=== PATIENT | female | born 1945 | race Caucasian/White ===

== ENCOUNTER 2024-01-21 13:48 | Emergency (ER) | payer MEDICARE, SELFPAY ==
[2024-01-21] VITALS (10 sets, daily range): BP systolic 108–175; BP diastolic 49–83; PULSE 61–69; BMI 23.0
[2024-01-21 14:30] LABS: % Basophils 0.8 % (0-2); % Eosinophils 1.8 % (0-6); % Immature Granulocytes 0.3 % (0-0.5); % Lymphocytes 12.8 % (20.5-51.1); % Monocytes 4.9 % (1.7-9.3); % Neutrophils 79.4 % (42.2-75.2); Absolute Basophils 0.1 10^3/uL (0-0.2); Absolute Eosinophils 0.2 10^3/uL (0-0.7); Absolute Lymphocytes 1.1 10^3/uL (1.2-3.4); Absolute Monocytes 0.4 10^3/uL (0.1-0.6); Absolute Neutrophils 7.1 10^3/uL (1.4-6.5); Hematocrit 42.5 % (37.0-47.0); Mean Corp Hgb Conc. 32.9 g/dL (33.0-37.0); Mean Corpuscular Hgb 30.9 pg (27.0-31.0); Mean Corpuscular Volume 93.8 fL (81.0-99.0); Mean Platelet Volume 9.3 fL (7.4-10.4); Nucleated Red Blood Cells % 0 %; Platelet Count 308 10^3/uL (130-400); Red Blood Cell Count 4.53 10^6/uL (4.20-5.40); Red Cell Dist. Width 14.4 % (11.5-14.5); White Blood Cell Count 8.9 10^3/uL (4.8-10.8)
[2024-01-21 14:49] LABS: ALT (SGPT) 70 U/L (0-35); AST (SGOT) 57 U/L (14-36); Albumin 3.9 g/dl (3.5-5.0); Alkaline Phosphatase 144 U/L (38-126); Blood Urea Nitrogen 12 mg/dl (7-17); Calcium 9.3 mg/dl (8.4-10.2); Carbon Dioxide 32 mmol/L (22-30); Chloride 94 mmol/L (98-107); Estimated Creatinine Clearance 53 ml/min; Glucose 139 mg/dl (70-99); Potassium 3.7 mmol/L (3.5-5.1); Sodium 133 mmol/L (135-145); Total Bilirubin 0.7 mg/dl (0.2-1.3); Total Protein 7.1 g/dl (6.3-8.2); eGFR > 60.00
--- NOTE | 2024-01-21 15:49 | ED.GENMED ---
History of Present Illness
General
Chief Complaint: Fainting/Passed Out
Source: patient
Exam Limitations: none
Time Seen by Provider: 01/21/24 15:24
Nursing documentation reviewed up to this point in time: agreed with
Travel History
Have you had any contact with someone who has COVID-19?: No
Do you have any symptoms of coronavirus? Fever > 100 degrees, chills, cough, shortness of breath, sore throat, loss of taste or smell, muscle aches, or headache?: No
History of Present Illness
History of Present Illness:
Patient to ED s/p syncopal event. According to family she was taking a hot shower. When she got out she felt weak and shaky. tried to walk her to a chair and she fell back into his arms. Daughter helped place her in a chair and she
passed out for approx 60 seconds. Has had near syncopal episodes in the past. Daughter states she has a history of vertigo and is never sure if she is dizzy of close to fainting. Pateint states she has had an upset stomach for the past couple
days. No abdominal pain or diarrhea. No fever/chills. Family reports she typically has a poor appitite and state she has very little to eat or drink over the past 24 hours. Brought to ED via EMS for eval.
Past History
Past History
ED Past Medical History: CAD, COPD, GERD, HTN, Hypercholesterolemia, NIDDM and Other (Ischemic cardiomyopathy with EF of 20-25%, interstitial lung disease, asthma)
ED Past Surgical History: Appendectomy and Cholecystectomy
Social History
Tobacco: Former smoker (quit )
Alcohol: None
Drug: None
Personal:
Living: senior living
Employment: Retired
Family History
Family History: Other (Grandmother with coronary disease father with cancer)
Review of Systems
Review of Systems
Allergies reviewed?: Yes
All Other Systems: ROS reviewed and negative except as documented in HPI and ROS
Constitutional: Reports fatigue
EENT: Reports no symptoms
Respiratory: Reports no symptoms
Cardiac: Reports syncope
ABD/GI: Reports other (poor appetite (typical). 'Upset stomach' (new))
: Reports no symptoms
Musculoskeletal: Reports no symptoms
Skin: Reports no symptoms
Neurological: Reports weakness
Psychiatric: Reports no symptoms
Phy Exam
General Physical Exam
General Presentation: well appearing and no apparent distress
General age: appears stated age
General Skin: warm and dry
General Habitus: elderly
General Mental: alert
Cardiovascular Exam
Cardiovascular Exam: regular rate/rhythm and no edema
Pulmonary Exam
Pulmonary Exam: no respiratory distress
Breath Sounds: Crackles: generalized
Gastrointestinal Exam
Gastrointestinal Exam: normal bowel sounds, non tender, soft, no organomegaly, no pulsatile mass, non distended and no cva tenderness
Neurological Exam
Neurological Exam: alert, oriented x3, CN II-XII intact, no motor deficits, no sensory deficits and speech normal
Musculoskeletal Exam
Musculoskeletal Exam: full ROM, no edema and neuro vasc intact
Skin Exam
Skin Exam: normal color, warm/dry and no rash
Psychiatric Exam
Psychiatric Exam: normal mood/affect
Course
Orders/Labs/Results
Orders:
Orders
01/21/24 13:52
Electrocardiogram (*1) Urgent
Reason for Study: Syncope
EKG- Treatment ONCE
01/21/24 14:00
Complete Blood Count/With Diff Urgent
Comprehensive Metabolic Panel Urgent
01/21/24 15:48
Cardiac Monitoring- Treatment ONCE
Orthostatic VS- Treatment ONCE
CR Chest - 2 Views Urgent
Comment:
Reason For Exam: syncope
01/21/24 16:09
Troponin I Urgent
01/21/24 18:38
Urinalysis Reflex To Culture Urgent
Date Specimen was Collected: 01/21/24
Time Specimen was Collected: 17:20
Urine Microscopic Reflex Cult Urgent
Abnormal Lab Results
01/21/24 01/21/24
14:00 18:38
MCHC 32.9 L g/dL
(33.0-37.0)
Absolute Neuts (auto) 7.1 H 10^3/uL
(1.4-6.5)
Absolute Lymphs (auto) 1.1 L 10^3/uL
(1.2-3.4)
Neutrophils % 79.4 H %
(42.2-75.2)
Lymphocytes % 12.8 L %
(20.5-51.1)
Sodium 133 L mmol/L
(135-145)
Chloride 94 L mmol/L
(98-107)
Carbon Dioxide 32 H mmol/L
(22-30)
Glucose 139 H mg/dl
(70-99)
AST 57 H U/L
(14-36)
ALT 70 H U/L
(0-35)
Alkaline Phosphatase 144 H U/L
(38-126)
Urine Bilirubin 1+ A
(Negative)
Leukocyte Esterase Rfl Trace A
(Negative)
Urine Bacteria (Reflex) Few A
(Negative)
01/21/24 14:00
01/21/24 14:00
Vital Signs
Initial and Last Documented VS:
Initial Vital Signs
BP
117/62
01/21/24 13:51
Last Documented Vital Signs
Temp Pulse Resp BP Pulse Ox
97.8 F 57 14 175/83 97
01/21/24 13:52 01/21/24 18:45 01/21/24 18:45 01/21/24 18:37 01/21/24 18:45
*Radiology
Radiology exam reviewed: radiology read reviewed
*Pulse Oximetry
Patient hypoxic: no
*Critical Care Note
Total Time (30-74mins, 75-104mins- exclusive of procedures): Not Applicable
Update Note
Update Note:
Labs, CXR resutls reviewed with patient and family. No symptoms while in ED. No concerning findings on exam SHe is discharged home nd will follow up with PCP. Given instrutions on s/s to return to ED. Case discussed with Dr. Ling who agrees
with findings and plan.
ED Attending Note
-
Portions of this chart may have been created with voice recognition software.� Occasional wrong word or��sound alike� substitutions may have occurred due to the inherent limitations of voice recognition software.
Discharge Plan
Departure
Patient Disposition: Home (Routine Discharge)
Date of Disposition: 01/21/24
Time of Disposition: 18:54
Patient with high blood pressure during this ER visit?: No
Condition: Good
Covid-19: Not Applicable
Discharge Problem:
Syncope
Instructions: Syncope (Fainting) (DC)
Prescriptions:
No Action
metformin 500 MG tablet
500 mg PO BID@0800,1700
atorvastatin 80 MG tablet
80 mg PO QPM
cyanocobalamin (vitamin B-12) 1,000 MCG tablet
1,000 mcg PO DAILY Qty: 0
albuterol sulfate 1 PUFF HFA aerosol inhaler
2 puff inhalation R Q4HPRN PRN (Reason: sob)
acetaminophen 325 MG tablet
650 mg PO Q4HPRN PRN (Reason: mild pain ) Qty: 0 0RF
ipratropium-albuterol 3 ML solution for nebulization
3 ml inhalation R Q4HPRN PRN (Reason: shortness of breath/wheezing) Qty: 0 0RF
aspirin 81 MG tablet,chewable
81 mg PO DAILY Qty: 0 0RF
cetirizine 10 MG tablet
10 mg PO DAILY
losartan 25 MG tablet
25 mg PO DAILY
montelukast 10 MG tablet
10 mg PO HS
guaifenesin [Mucus Relief ER] 600 MG tablet extended release 12hr
600 mg PO Q12 PRN (Reason: congestion)
escitalopram oxalate 20 MG tablet
20 mg PO DAILY
donepezil 5 mg tablet
5 mg PO QPM
levothyroxine 25 mcg tablet
25 mcg PO DAILY
gabapentin 300 mg capsule
300 mg PO TID
bupropion HCl 300 mg tablet extended release 24 hr
300 mg PO DAILY
risedronate 150 mg tablet
150 mg PO MONTHLY
fluticasone furoate-vilanterol [Breo Ellipta] 100-25 mcg/dose blister with device
1 inh INHALATION R DAILY
calcium carbonate-vitamin D3 [Calcium 600 + D(3)] 600 mg-10 mcg (400 unit) Tablet
1 tab PO DAILY
meclizine 25 mg tablet
12.5 mg PO TID PRN (Reason: dizziness)
multivitamin Tablet
1 tab PO DAILY
famotidine 40 mg Tablet
40 mg PO HS
omeprazole 20 mg Capsule,Delayed Release(Dr/Ec)
40 mg PO DAILY
Referrals:
Margie Burkett MD [Family Provider] - Tomorrow
Interventions
Interventions:
*Risk Screen - Suicide Last Done: 01/21/24 13:52
*General Assessment Last Done: 01/21/24 13:52
*Neglect/Abuse Screening Last Done: 01/21/24 13:52
ED- Fall Risk Assessment Last Done: 01/21/24 19:22
*Nursing Disposition Last Done: 01/21/24 19:22
ED- Cardiac Assessment Last Done: 01/21/24 13:58
ED- Neurological Assessment Last Done: 01/21/24 13:58
Discharge Date and Time
Discharge Date/Time: 01/21/24 19:23
Print Language: NAURUAN
[2024-01-21 16:58] LABS: Troponin I < 0.012 ng/ml
[2024-01-21 18:42] LABS: Urine Albumin Trace (Neg - Trace); Urine Bilirubin 1+ (Negative); Urine Character Clear (Clear); Urine Color Yellow; Urine Glucose Negative (Negative); Urine Ketone Negative (Negative); Urine Leukocyte Trace (Negative); Urine Nitrite Negative (Negative); Urine Occult Blood Negative (Negative); Urine Specific Gravity 1.015 (<1.030); Urine Urobilinogen Negative (Neg - 1+)
[2024-01-21 18:50] LABS: Urine Bacteria Few (Negative); Urine Red Blood Cell 0-2 /HPF (0-2); Urine Squamous Cell 0-2 /LPF (Few); Urine White Cell 0-2 /HPF (0-5)
== END 2024-01-21 19:23 | disposition home or self-care (01) ==
LOC: EMR 13:48
PROVIDERS: Nurse Practitioner; EMERGENCY PHYSICIAN Emergency Medicine; FAMILY PHYSICIAN Family Medicine
DX: R55 Syncope and collapse (principal); I25.10 Atherosclerotic heart disease of native coronary artery without angina pectoris; J44.9 Chronic obstructive pulmonary disease, unspecified; K21.9 Gastro-esophageal reflux disease without esophagitis; I10 Essential (primary) hypertension; E78.00 Pure hypercholesterolemia, unspecified; E11.9 Type 2 diabetes mellitus without complications; I25.5 Ischemic cardiomyopathy; Z87.891 Personal history of nicotine dependence; Z82.49 Family history of ischemic heart disease and other diseases of the circulatory system; Z80.9 Family history of malignant neoplasm, unspecified
CPT/HCPCS: 99283; 71046; 80053; 81003; 81015; 84484; 85025; 93005

== ENCOUNTER 2024-02-02 16:53 | Inpatient (IN) | payer MEDICARE, SELFPAY ==
[2024-02-02] VITALS (13 sets, daily range): BP systolic 127–170; BP diastolic 59–87; BMI 20.9
[2024-02-02 11:32] LABS: % Basophils 0.3 % (0-2); % Eosinophils 0.1 % (0-6); % Immature Granulocytes 0.3 % (0-0.5); % Lymphocytes 4.5 % (20.5-51.1); % Monocytes 4.4 % (1.7-9.3); % Neutrophils 90.4 % (42.2-75.2); Absolute Basophils 0.1 10^3/uL (0-0.2); Absolute Immature Granulocytes 0.1 10^3/uL (0-0.05); Absolute Lymphocytes 0.7 10^3/uL (1.2-3.4); Absolute Monocytes 0.7 10^3/uL (0.1-0.6); Absolute Neutrophils 13.6 10^3/uL (1.4-6.5); Hemoglobin 13.5 g/dL (12.0-16.0); Mean Corp Hgb Conc. 33.8 g/dL (33.0-37.0); Mean Corpuscular Hgb 31.5 pg (27.0-31.0); Mean Corpuscular Volume 93.5 fL (81.0-99.0); Mean Platelet Volume 8.9 fL (7.4-10.4); Nucleated Red Blood Cells % 0 %; Platelet Count 323 10^3/uL (130-400); Red Blood Cell Count 4.28 10^6/uL (4.20-5.40); Red Cell Dist. Width 14.4 % (11.5-14.5); White Blood Cell Count 15.1 10^3/uL (4.8-10.8)
[2024-02-02 11:48] LABS: ALT (SGPT) 25 U/L (0-35); AST (SGOT) 24 U/L (14-36); Albumin 3.3 g/dl (3.5-5.0); Alkaline Phosphatase 81 U/L (38-126); Blood Urea Nitrogen 11 mg/dl (7-17); Carbon Dioxide 28 mmol/L (22-30); Chloride 99 mmol/L (98-107); Estimated Creatinine Clearance 64 ml/min; Glucose 125 mg/dl (70-99); Potassium 3.6 mmol/L (3.5-5.1); Sodium 132 mmol/L (135-145); Total Bilirubin 0.9 mg/dl (0.2-1.3); Total Protein 6.2 g/dl (6.3-8.2); eGFR > 60.00
[2024-02-02 12:00] LABS: Troponin I < 0.012 ng/ml
--- NOTE | 2024-02-02 12:28 | ED.GENMED ---
History of Present Illness
General
Chief Complaint: Weakness
Source: patient
Exam Limitations: none
Time Seen by Provider: 02/02/24 12:09
Travel History
Have you had any contact with someone who has COVID-19?: No
Do you have any symptoms of coronavirus? Fever > 100 degrees, chills, cough, shortness of breath, sore throat, loss of taste or smell, muscle aches, or headache?: No
History of Present Illness
History of Present Illness:
79 year old female presents with generalized weakness starting several days ago and getting worse. She notes shakes but notes chills or sweats. No measurable fever. She has a history of COPD [id number] diabetes. There is an episode of
vomiting today. She notes extreme weakness not able to walk today. Typically she ambulates on her own with a walker. She presents from home where she lives with her . She has no other significant complaints at this time
Past History
Past History
ED Past Medical History: CAD, COPD, GERD, HTN, Hypercholesterolemia, NIDDM and Other (Ischemic cardiomyopathy with EF of 20-25%, interstitial lung disease, asthma)
ED Past Surgical History: Appendectomy and Cholecystectomy
Social History
Tobacco: Former smoker (quit )
Alcohol: None
Drug: None
Personal:
Living: halfway
Employment: Retired
Family History
Family History: Other (Grandmother with coronary disease father with cancer)
Phy Exam
Physical Exam
Physical Exam:
General: Well-appearing female no acute respiratory distress
HEENT: Normocephalic atraumatic, neck is supple
Heart: Regular rate and rhythm no murmurs
Lungs: Crackles at the base on the left and right course otherwise
Extremities: No cyanosis or edema
Skin: Warm no rash
Course
Orders/Labs/Results
Orders:
Orders
02/02/24 11:18
Electrocardiogram (*1) Urgent
Reason for Study: Fatigue / Weakness
EKG- Treatment ONCE
02/02/24 11:26
Complete Blood Count/With Diff Urgent
Comprehensive Metabolic Panel Urgent
NT-proBNP Urgent
Comment: ADD ON
Troponin I Urgent
02/02/24 12:25
CR Chest - 2 Views Urgent
Comment:
Reason For Exam: weakness, hypoxia
02/02/24 12:26
Add On- LAB Urgent
Tests Added?: bnp
02/02/24 12:31
COVID-19 Antigen Urgent
Source: Nasal Swab
Influenza A+B Rapid Molecular Urgent
LAKESHA Source: Nasal Swab
Specimen Description:
02/02/24 14:12
Dexamethasone Sod Phosphate [Decadron] 10 mg IV NOW STA
Ipratropium/Albuterol Sulfate [Duoneb] 3 ml INH R NOW STA
02/02/24 Dinner
Regular
At Your Request: Limited, Property Supervisor Required
02/02/24 16:24
Admit/Transfer Patient As Directed
Co-Sign Provider:
Level of Care: Inpatient admission
Assign to:: Medical/Surgical
Physician / Group: bailey
Diagnosis: uti/URI, copd
Reason for Hospitalization: uti/URI, copd
Expected length of stay greater than two midnights?: Yes
ELOS- Estimated Length of Stay in days: 2
I certify the patient meets the requirements for IP care: Yes
02/02/24 16:25
Code Status As Directed
Resuscitation Status: Full Code
02/02/24 16:26
Urinalysis Reflex To Culture Urgent
Date Specimen was Collected: 02/03/24
Time Specimen was Collected: 06:14
02/02/24 20:29
0.9% Sodium Chloride 1000 ml [Nss] 1,000 ml IV 70 mls/hr
Acetaminophen [Tylenol] 650 mg PO Q4HPRN PRN
Atorvastatin [Lipitor] 80 mg PO QPM
Dextrose 50%-Water [Dextrose 50% Syringe] 12.5 grams IV [id number] PRN
Glucagon [GlucaGen] 1 mg IM PRN PRN
Guaifenesin [Mucinex] 600 mg PO [id number] PRN
Heparin 5,000 units SC Q12
Insulin Aspart Corrective Low [Novolog Flexpen-Low Resistance] See Protocol SC AC
Ipratropium/Albuterol Sulfate [Duoneb] 3 ml INH R Q4HPRN PRN
Ipratropium/Albuterol Sulfate [Duoneb] 3 ml INH R QID
METFORMIN HCl [Glucophage] 500 mg PO BID@0800,1700
02/02/24 20:29
Activity As Directed
Activity Level: As Tolerated
Bedside Glucose Monitoring As Directed
Frequency: AC&HS
Comment: Change to q6h if pt on TPN, tube feeding or not eating
Intake/ Output As Directed
Frequency: Per unit guidelines
Vital Signs As Directed
Frequency: Per unit guidelines
Copd Education [RESP] Routine
DX Deep Vein Thrombosis Video Routine
02/02/24 20:53
Meclizine [Antivert] 12.5 mg PO TIDPRN PRN
02/02/24 21:00
Donepezil HCl [Aricept] 10 mg PO QPM
02/02/24 22:00
Famotidine [Pepcid] 40 mg PO HS
Gabapentin [Neurontin] 300 mg PO TID
Montelukast Sodium [Singulair] 10 mg PO HS
02/03/24 06:00
Levothyroxine [Synthroid] 25 mcg PO DAILY @ 0600
02/03/24 06:24
Basic Metabolic Panel IN AM
Complete Blood Count/With Diff IN AM
Glycohemoglobin (HgbA1c) IN AM
02/03/24 08:00
Aspirin Chewable [Low Strength Aspirin] 81 mg PO DAILY
Bupropion(24Hr)Extended Releas [WELLBUTRIN XL (24 hour extended release)] 300 mg PO DAILY
Calcium Carbonate/Vitamin D3 [Oscal 500 + D] 500 mg PO DAILY
Cetirizine HCl [Zyrtec] 10 mg PO DAILY
Cyanocobalamin [Vitamin B-12] 1,000 mcg PO DAILY
Escitalopram Oxalate [Lexapro] 20 mg PO DAILY
Losartan [Cozaar] 25 mg PO DAILY
Multivitamin [Theragran] 1 tablet PO DAILY
Pantoprazole [Protonix] 40 mg PO DAILY
Prednisone [Deltasone] 40 mg PO DAILY
Abnormal Lab Results
02/02/24
11:26
WBC 15.1 H 10^3/uL
(4.8-10.8)
MCH 31.5 H pg
(27.0-31.0)
Abs Immat Gran (auto) 0.1 H 10^3/uL
(0-0.05)
Absolute Neuts (auto) 13.6 H 10^3/uL
(1.4-6.5)
Absolute Lymphs (auto) 0.7 L 10^3/uL
(1.2-3.4)
Absolute Monos (auto) 0.7 H 10^3/uL
(0.1-0.6)
Neutrophils % 90.4 H %
(42.2-75.2)
Lymphocytes % 4.5 L %
(20.5-51.1)
Sodium 132 L mmol/L
(135-145)
Creatinine 0.5 L mg/dL
(0.6-1.0)
Glucose 125 H mg/dl
(70-99)
Calcium 8.0 L mg/dl
(8.4-10.2)
Total Protein 6.2 L g/dl
(6.3-8.2)
Albumin 3.3 L g/dl
(3.5-5.0)
02/02/24 11:26
02/02/24 11:26
Vital Signs
Initial and Last Documented VS:
Initial Vital Signs
BP
170/67
02/02/24 11:19
Last Documented Vital Signs
Temp Pulse Resp BP Pulse Ox
98.4 F 77 16 160/75 92
02/04/24 07:00 02/04/24 07:26 02/04/24 07:26 02/04/24 07:00 02/04/24 07:26
MDM/Problems Addressed
Differential Diagnosis Includes:
Chief complaint is weakness. Differential is large consider infectious process will check for UTI COVID flu pneumonia. Check for anemia electrolyte abnormality. Patient is hypoxic but does not appear to be volume overloaded. She is requiring now
2 L of oxygen
*Critical Care Note
Total Time (30-74mins, 75-104mins- exclusive of procedures): Not Applicable
Update Note
Update Note:
Chest x-ray reviewed and shows interstitial fibrosis. BNP around 800. White blood cell count 15,000. Patient is requiring 2 L nasal cannula oxygen. No evidence of pneumonia on the x-ray. Consider COPD flare.
ED Attending Note
-
Portions of this chart may have been created with voice recognition software.� Occasional wrong word or��sound alike� substitutions may have occurred due to the inherent limitations of voice recognition software.
Discharge Plan
Departure
Patient Disposition: Admit
Date of Disposition: 02/02/24
Time of Disposition: 15:33
Admit to: Telemetry
Presentation/result/management discussed w/ accepting MD/DO: Hospitalist
Discharge Problem:
Idiopathic pulmonary fibrosis
Interventions
Interventions:
*Risk Screen - Suicide Last Done: 02/02/24 11:21
*General Assessment Last Done: 02/02/24 11:21
*Neglect/Abuse Screening Last Done: 02/02/24 11:21
ED- Fall Risk Assessment Last Done: 02/02/24 20:25
*ED COVID-19 Vaccine History Last Done: 02/02/24 11:21
*Nursing Disposition Last Done: 02/02/24 20:25
ED- Cardiac Assessment Last Done: 02/02/24 11:23
ED- Neurological Assessment Last Done: 02/02/24 11:23
ED- Pulmonary Assessment Last Done: 02/02/24 11:23
Discharge Date and Time
Discharge Date/Time: 02/02/24 20:26
[2024-02-02 12:52] LABS: COVID-19 Antigen Negative (Negative)
[2024-02-02 14:08] LABS: NT-proBNP 880 pg/ml
[2024-02-02] MEDS: DECADRON 10 MG IV (14:40)
[2024-02-02] MEDS: DUONEB 3 ML INH (14:40)
--- NOTE | 2024-02-02 16:29 | HPS.HSE ---
Family Physician
-
Family Physician: Margie Burkett
Chief Complaint
-
weakness
History of Present Illness
79-year-old female past medical history of COPD/ILD, CAD status post stent, diabetes, mild cognitive impairment, essential hypertension, hyperlipidemia, hypothyroidism, anxiety/depression, peripheral neuropathy, GERD, presenting with generalized
weakness for the past few days associated with decreased p.o. intake. She is having difficulty ambulating and unable to walk and almost falling. She had an episode of vomiting this morning. Denies any sore throat or runny nose or chest pain. She
has chronic cough which is at baseline. No shortness of breath. Pulse ox was in the high 90s today. Does not use oxygen at home. No diarrhea or abdominal pain. No urinary symptoms. No sick contacts. No fevers or chills. Denies any recent
steroid use.
Medical History
Past Medical History
Past Medical History: Reports Other (COPD/ILD, CAD status post stent, diabetes, mild cognitive impairment, essential hypertension, hyperlipidemia, hypothyroidism, anxiety/depression, peripheral neuropathy, GERD)
Past Surgical History: Reports Other ( Appendectomy and Cholecystectomy)
Social History
Tobacco: Former Smoker
Alcohol: None
Drug: None
Family History
Family History: Not pertinent
Allergies / Home Medications
Allergies reflects when Allergies were last updated in [facility].
Home Medications with original date entered in [employer]
Allergy/Medication List:
Allergies
Allergy/AdvReac Type Severity Reaction Status Date / Time
Sulfa (Sulfonamide Allergy Hives Verified 11/16/23 13:22
Antibiotics)
lisinopril AdvReac cough Verified 11/16/23 13:22
Home Medications
albuterol sulfate 90 mcg/actuation aerosol inhaler 2 puff inhalation R Q4HPRN PRN sob 08/24/16
atorvastatin 80 mg tablet 80 mg PO QPM High Cholesterol 08/24/16
cyanocobalamin (vitamin B-12) 1,000 mcg tablet 1,000 mcg PO DAILY Supplement ##0 08/24/16
metformin 500 mg tablet 500 mg PO BID@0800,1700 Diabetes 08/24/16
acetaminophen 325 mg tablet 650 mg (2 x 325 mg) PO Q4HPRN PRN mild pain ##0 09/04/16
aspirin 81 mg chewable tablet 81 mg PO DAILY ##0 09/04/16
ipratropium 0.5 mg-albuterol 3 mg (2.5 mg base)/3 mL nebulization soln 3 ml inhalation R Q4HPRN PRN shortness of breath/wheezing ##0 09/04/16
cetirizine 10 mg tablet 10 mg PO DAILY Allergies 05/20/19
escitalopram oxalate 20 mg tablet 20 mg PO DAILY Depression 05/20/19
guaifenesin 600 mg tablet, extended release 12 hr (Mucus Relief ER) 600 mg PO Q12 PRN congestion 05/20/19
losartan 25 mg tablet 25 mg PO DAILY Blood Pressure 05/20/19
montelukast 10 mg tablet 10 mg PO HS ASTHMA 05/20/19
bupropion HCl 300 mg 24 hr tablet, extended release 300 mg PO DAILY Depression 11/16/23
calcium carbonate 600 mg-vitamin D3 10 mcg (400 unit) tablet (Calcium 600 + D(3)) 1 tab PO DAILY Supplement 11/16/23
donepezil 5 mg tablet 10 mg PO QPM MEMORY 11/16/23
famotidine 40 mg tablet 40 mg PO HS Gastrointestinal Issue 11/16/23
fluticasone furoate 100 mcg-vilanterol 25 mcg/dose inhalation powder (Breo Ellipta) 1 inh inhalation R DAILY Lung/Breathing Issues 11/16/23
gabapentin 300 mg capsule 300 mg PO TID Neurological Condition 11/16/23
levothyroxine 25 mcg tablet 25 mcg PO DAILY Thyroid 11/16/23
meclizine 25 mg tablet 12.5 mg PO TID PRN dizziness 11/16/23
multivitamin 1 tab PO DAILY Supplement 11/16/23
omeprazole 20 mg capsule,delayed release 40 mg PO DAILY Gastrointestinal Issue 11/16/23
risedronate 150 mg tablet 150 mg PO MONTHLY BONE 11/16/23
Review of Systems
-
History Source: Patient
A 12 point ROS was completed and negative except as noted: Yes
Constitutional: Reports No Symptoms
EENT: Reports No Symptoms
Respiratory: Reports See HPI
Cardiac: Reports No Symptoms
Abdomen/GI: Reports No Symptoms
: Reports No Symptoms
Musculoskeletal: Reports No Symptoms
Skin: Reports No Symptoms
Neurological: Reports No Symptoms
Endocrine: Reports No Symptoms
Hematologic/Lymphatic: Reports No Symptoms
Psych: Reports No Symptoms
Physical Exam
Vital Signs
Vital Signs
Temp Pulse Resp BP Pulse Ox
98.9 F 78 25 167/77 94
02/02/24 11:20 02/02/24 15:30 02/02/24 15:30 02/02/24 15:00 02/02/24 15:30
Physical Exam
General: Well Developed, Well Nourished and No Apparent Distress
HEENT: NormoCephalic, Moist mucous membranes and Atraumatic
Respiratory: Rales and Rhonchi
Cardiac: S1/S2 and Regular Rhythm; No Murmur or Rub
GI: Soft, Non Tender, Non Distended and Normal Bowel Sounds; No Organomegaly
Rectal: Deferred by Provider
Musculoskeletal: No Clubbing, No Cyanosis and No Edema
Skin: No Rash
Neuro: Nonfocal/grossly intact
Laboratory Results
-
02/02/24 11:26
02/02/24 11:26
Laboratory Results
Total Bilirubin 0.9 mg/dl (0.2-1.3) 02/02/24 11:26
AST 24 U/L (14-36) 02/02/24 11:26
ALT 25 U/L (0-35) 02/02/24 11:26
Alkaline Phosphatase 81 U/L (38-126) 02/02/24 11:26
Troponin I < 0.012 ng/ml 02/02/24 11:26
Data Reviewed
-
Lab Data: Labs Reviewed by me
Old Records: Reviewed
Impression/Plan
-
IMPRESSION:
PLAN:
# Generalized weakness suspect UTI/viral URI
-Leukocytosis of 15
-COVID-negative, influenza negative
-Check urinalysis
-IV fluids
# Mild COPD exacerbation
# History of ILD
-Not hypoxic, crackles on lung examination consistent with ILD, some rhonchi
-Chest x-ray shows moderate interstitial fibrosis without any superimposed acute abnormality
-DuoNebs every 6 hours
-given 10 of Decadron, continue prednisone 40 mg
-Continue Breo
-Continue montelukast
Coronary artery disease status post stent
-Continue aspirin
Type 2 diabetes
-Continue metformin
-Insulin sliding scale
Essential hypertension
-Continue losartan
Mild cognitive impairment
-Continue donepezil
Hyperlipidemia
-Continue statin
Hypothyroidism
-Continue levothyroxine
Anxiety/depression
-Continue bupropion, Lexapro
Peripheral neuropathy
-Continue gabapentin
GERD
-Continue famotidine, omeprazole
Osteoporosis
Former smoker
Full code
DVT prophylaxis�heparin
Regular diet
--- NOTE | 2024-02-02 20:58 | PTCARENOTE ---
pt arrived from ed, pulled over, on 2 L NC new for pt. aaox3, VSS, see MAR and assessment for further details. call garg within reach.
[2024-02-02] MEDS: GLUCOPHAGE 500 MG PO (21:03)
[2024-02-02] MEDS: SINGULAIR 10 MG PO (21:03)
[2024-02-02] MEDS: LIPITOR 80 MG PO (21:03)
[2024-02-02] MEDS: NEURONTIN 300 MG PO (21:03)
[2024-02-02] MEDS: ARICEPT 10 MG PO (21:03)
[2024-02-02] MEDS: PEPCID 40 MG PO (21:03)
[2024-02-02] MEDS: HEPARIN 5000 UNITS SC (21:03)
[2024-02-02] MEDS: NSS 1000 IV (21:05)
[2024-02-02] MEDS: DUONEB INH (21:37)
[2024-02-02 21:47] LABS: Glucose - Point of Care 255 mg/dl (70-99)
[2024-02-02] MEDS: NOVOLOG FLEXPEN-LOW RESISTANCE 3 UNITS SC (22:01)
[2024-02-03 03:04] LABS: Glucose - Point of Care 115 mg/dl (70-99)
[2024-02-03] MEDS: SYNTHROID 25 MCG PO (05:56)
[2024-02-03 06:30] LABS: Urine Albumin 1+ (Neg - Trace); Urine Bilirubin 1+ (Negative); Urine Character Clear (Clear); Urine Color Yellow; Urine Glucose Negative (Negative); Urine Ketone 2+ (Negative); Urine Leukocyte 2+ (Negative); Urine Nitrite Negative (Negative); Urine Occult Blood 2+ (Negative); Urine Specific Gravity 1.015 (<1.030); Urine Urobilinogen Negative (Neg - 1+)
[2024-02-03 06:47] LABS: % Basophils 0.1 % (0-2); % Immature Granulocytes 0.3 % (0-0.5); % Lymphocytes 9.2 % (20.5-51.1); % Monocytes 4.1 % (1.7-9.3); % Neutrophils 86.3 % (42.2-75.2); Absolute Lymphocytes 0.8 10^3/uL (1.2-3.4); Absolute Monocytes 0.4 10^3/uL (0.1-0.6); Absolute Neutrophils 7.5 10^3/uL (1.4-6.5); Hematocrit 38.2 % (37.0-47.0); Hemoglobin 12.8 g/dL (12.0-16.0); Mean Corp Hgb Conc. 33.5 g/dL (33.0-37.0); Mean Corpuscular Hgb 31.2 pg (27.0-31.0); Mean Corpuscular Volume 93.2 fL (81.0-99.0); Nucleated Red Blood Cells % 0 %; Platelet Count 337 10^3/uL (130-400); Red Cell Dist. Width 14.1 % (11.5-14.5); White Blood Cell Count 8.6 10^3/uL (4.8-10.8)
[2024-02-03 07:07] LABS: Blood Urea Nitrogen 13 mg/dl (7-17); Calcium 8.6 mg/dl (8.4-10.2); Carbon Dioxide 29 mmol/L (22-30); Chloride 98 mmol/L (98-107); Estimated Creatinine Clearance 61 ml/min; Glucose 124 mg/dl (70-99); Potassium 3.9 mmol/L (3.5-5.1); Sodium 133 mmol/L (135-145); eGFR > 60.00
[2024-02-03 07:13] LABS: Urine Red Blood Cell 16-20 /HPF (0-2); Urine Squamous Cell 0-2 /LPF (Few)
[2024-02-03 07:15] LABS: Urine Bacteria Many (Negative); Urine White Cell 0-2 /HPF (0-5)
[2024-02-03 07:34] VITALS: BP 163/74
[2024-02-03] MEDS: DUONEB 3 ML INH ×4 (07:36→19:13)
[2024-02-03] MEDS: PROTONIX 40 MG PO (08:34)
[2024-02-03] MEDS: LOW STRENGTH ASPIRIN 81 MG PO (08:34)
[2024-02-03] MEDS: COZAAR 25 MG PO (08:34)
[2024-02-03] MEDS: NEURONTIN 300 MG PO ×3 (08:34→21:43)
[2024-02-03] MEDS: OSCAL 500 + D 500 MG PO (08:34)
[2024-02-03] MEDS: WELLBUTRIN XL (24 hour extended release) 300 MG PO (08:34)
[2024-02-03] MEDS: THERAGRAN 1 TABLET PO (08:34)
[2024-02-03] MEDS: DELTASONE 40 MG PO (08:34)
[2024-02-03] MEDS: HEPARIN 5000 UNITS SC (08:35)
[2024-02-03] MEDS: ZYRTEC 10 MG PO (08:35)
[2024-02-03] MEDS: LEXAPRO 20 MG PO (08:35)
[2024-02-03] MEDS: GLUCOPHAGE 500 MG PO ×2 (08:35→18:08)
[2024-02-03] MEDS: VITAMIN B-12 1000 MCG PO (08:35)
--- NOTE | 2024-02-03 08:46 | W.PN.HOSP.TC ---
Addendum entered and electronically signed by Austne Lora MD 02/03/24 15:05:
#Asymptomatic bacteriuria
Leukocytosis resolved without antibiotics
Patient is afebrile, she denies dysuria, monitor off antibiotics
Original Note:
Today's Communication/Plan
-
see bold
Assessment / Plan
Assessment / Plan
79-year-old female past medical history of COPD/ILD, CAD status post stent, diabetes, mild cognitive impairment, essential hypertension, hyperlipidemia, hypothyroidism, anxiety/depression, peripheral neuropathy, GERD, presenting with generalized
weakness for the past few days associated with decreased p.o. intake. She is having difficulty ambulating and unable to walk and almost falling. She had an episode of vomiting this morning. Denies any sore throat or runny nose or chest pain. She
has chronic cough which is at baseline. No shortness of breath. Pulse ox was in the high 90s today. Does not use oxygen at home. No diarrhea or abdominal pain. No urinary symptoms. No sick contacts. No fevers or chills. Denies any recent
steroid use.
# Generalized weakness suspect viral URI
PT/OT
# Mild COPD exacerbation
# History of ILD
Patient satting 93% on room air, was placed on 2 L for comfort
Change back to IV steroids, continue bronchodilators
Continue Breo, montelukast
Patient satting 93% on room air, was placed on 2 L for comfort
Coronary artery disease status post stent
-Continue aspirin
Cognitive Impairment on donepezil
-Monitor
Type 2 diabetes
-Continue metformin
-Insulin sliding scale
Essential hypertension
-Continue losartan
Hyperlipidemia
-Continue statin
Hypothyroidism
-Continue levothyroxine
Anxiety/depression
-Continue bupropion, Lexapro
Peripheral neuropathy
-Continue gabapentin
GERD
-Continue famotidine, omeprazole
Osteoporosis
Former smoker
DVT prophylaxis�SQ Lovenox
Full code
Total time spent to see the patient on the floor, examine the patient, review data and lab results, discuss treatment plan with patient, nursing staff around 51 minutes.
Physical Exam
General: No acute distress
HEENT: Normocephalic, Atraumatic, EOMI, MMM
Respiratory: Crackles and rhonchi
Cardiac: Normal S1/S2, Regular Rate and Rhythm
GI: Soft, Nontender, Nondistended, Normal Bowel Sounds
Extremities: No Clubbing, Cyanosis, or Edema
Neuro: Nonfocal/Grossly Intact
Psych: Calm, Cooperative
Derm: No Visible lesions
Anticipated Discharge: 24 - 48 hours
Subjective/Interval History
-
Date of Service: February 03, 2024
Patient continues to cough, reports her breathing is unchanged from admission, she still short of breath. Reports feeling weak. No fever, no vomiting.
Objective Data
-
Labs:
Laboratory Results
02/03/24
06:24
WBC 8.6
Hgb 12.8
Hct 38.2
Plt Count 337
Sodium 133 L
Potassium 3.9
Chloride 98
Carbon Dioxide 29
BUN 13
Creatinine 0.6
Glucose 124 H
Calcium 8.6
Vital Signs:
Vital Signs
Temp Pulse Resp BP Pulse Ox
97.9 F 59 16 163/74 96
02/03/24 07:34 02/03/24 07:34 02/03/24 07:34 02/03/24 08:34 02/03/24 07:34
I&O
02/02/24 02/03/24 02/04/24
06:59 06:59 06:59
Intake Total 960 / 960
Balance 960 / 960
[2024-02-03 09:13] LABS: Glucose - Point of Care 108 mg/dl (70-99)
[2024-02-03 09:40] LABS: Glycohemoglobin (HgbA1c) 6.8 % (4.0-5.6)
[2024-02-03] MEDS: NOVOLOG FLEXPEN-LOW RESISTANCE SC (09:45)
[2024-02-03 11:27] VITALS: BP 159/81; PULSE 73; O2SAT 96
[2024-02-03 11:28] VITALS: BP 159/81; PULSE 70; O2SAT 96
[2024-02-03] MEDS: NSS 1000 IV (11:33)
[2024-02-03 11:51] LABS: Glucose - Point of Care 161 mg/dl (70-99)
[2024-02-03] MEDS: NOVOLOG FLEXPEN-LOW RESISTANCE 1 UNITS SC ×2 (12:52→18:09)
[2024-02-03 13:59] VITALS: BMI 21.7
--- NOTE | 2024-02-03 15:10 | PTCARENOTE ---
pt demonstrating confusion, restlessness. acute change. attending notified. Urine culture pending. [facility]. BP 163/87, HR 88. pt states she needs to leave, needs to go to the bathroom. assisted to BSC voided in
commode and incontinent. awaiting orders.
[2024-02-03 15:26] VITALS: BP 164/66
--- NOTE | 2024-02-03 15:52 | CM ---
Alert awake oriented patient who lives with her Michel in a 2 story condo with 4 step to enter and 14 steps to bath/ bed room . She is independent in all activities of daily living.Offered VN she requested [facility] Liaison Violette MARLOW request.She
uses a walker and cane .She is wearing oxygen but does not have home oxygen..
No SNF/has had [facility] hx
Pharmacy [facility]
PCP Dr Margie Burkett
PLAN Home with [facility] if accepted
[2024-02-03] MEDS: DECADRON 4 MG IV ×2 (16:28→23:26)
[2024-02-03 17:50] LABS: Glucose - Point of Care 182 mg/dl (70-99)
[2024-02-03] MEDS: LOVENOX 40 MG SC (18:08)
[2024-02-03] MEDS: LIPITOR 80 MG PO (18:08)
[2024-02-03] MEDS: ARICEPT 10 MG PO (18:08)
[2024-02-03] MEDS: PEPCID 40 MG PO (21:43)
[2024-02-03] MEDS: SINGULAIR 10 MG PO (21:43)
[2024-02-03] MEDS: MUCINEX 600 MG PO (21:43)
[2024-02-03 21:51] LABS: Glucose - Point of Care 180 mg/dl (70-99)
[2024-02-03 23:00] VITALS: BP 121/51
[2024-02-03] MEDS: FLUSH (NSS) 2 FLUSH IV (23:26)
[2024-02-04] MEDS: SYNTHROID 25 MCG PO (06:07)
[2024-02-04 07:00] VITALS: BP 160/75
[2024-02-04] MEDS: DUONEB 3 ML INH ×3 (07:23→19:29)
--- NOTE | 2024-02-04 07:28 | W.PN.HOSP.TC ---
Today's Communication/Plan
-
Transition to oral steroids
Discharge home with home care tomorrow
Assessment / Plan
Assessment / Plan
79-year-old female past medical history of COPD/ILD, CAD status post stent, diabetes, mild cognitive impairment, essential hypertension, hyperlipidemia, hypothyroidism, anxiety/depression, peripheral neuropathy, GERD, presenting with generalized
weakness for the past few days associated with decreased p.o. intake. She is having difficulty ambulating and unable to walk and almost falling. She had an episode of vomiting this morning. Denies any sore throat or runny nose or chest pain. She
has chronic cough which is at baseline. No shortness of breath. Pulse ox was in the high 90s today. Does not use oxygen at home. No diarrhea or abdominal pain. No urinary symptoms. No sick contacts. No fevers or chills. Denies any recent
steroid use.
# Generalized weakness suspect viral URI
PT/OT rec HH
Medically stable for discharge home with home care tomorrow
# Mild COPD exacerbation
# History of ILD
Patient satting 93% on room air, was placed on 2 L for comfort
Much improved on IV steroids, will change to oral steroids tomorrow
Continue Breo, montelukast
#Dehydration
Resolved with IV fluids
#UTI ruled out
Patient is afebrile, denies dysuria, leukocytosis resolved without any antibiotics
Urine cultures growing 60,000 colonies of gram-negative rods, not enough to qualify for UTI
Coronary artery disease status post stent
-Continue aspirin
Cognitive Impairment on donepezil
-Monitor
Type 2 diabetes
-Continue metformin
-Insulin sliding scale
Essential hypertension
-Continue losartan
Hyperlipidemia
-Continue statin
Hypothyroidism
-Continue levothyroxine
Anxiety/depression
-Continue bupropion, Lexapro
Peripheral neuropathy
-Continue gabapentin
GERD
-Continue famotidine, omeprazole
Osteoporosis
Former smoker
DVT prophylaxis�SQ Lovenox
Full code
Updated daughter on phone 02/03
Total time spent to see the patient on the floor, examine the patient, review data and lab results, discuss treatment plan with patient, nursing staff around 35 minutes.
Physical Exam
General: No acute distress
HEENT: Normocephalic, Atraumatic, EOMI, MMM
Respiratory: Crackles and rhonchi
Cardiac: Normal S1/S2, Regular Rate and Rhythm
GI: Soft, Nontender, Nondistended, Normal Bowel Sounds
Extremities: No Clubbing, Cyanosis, or Edema
Neuro: Mild memory impairment noted
Psych: Calm, Cooperative
Derm: No Visible lesions
Anticipated Discharge: Within 24 hours
Subjective/Interval History
-
Date of Service: February 04, 2024
Patient has a chronic cough. She feels better overall. Her breathing has improved dramatically. She is off oxygen. No fever, no vomiting.
Objective Data
-
Vital Signs:
Vital Signs
Temp Pulse Resp BP Pulse Ox
98.3 F 77 16 121/51 92
02/03/24 23:00 02/04/24 07:26 02/04/24 07:26 02/03/24 23:00 02/04/24 07:26
I&O
02/03/24 02/04/24 02/05/24
06:59 06:59 06:59
Intake Total 960 / 960 360 / 360
Balance 960 / 960 360 / 360
[2024-02-04 08:32] LABS: Glucose - Point of Care 146 mg/dl (70-99)
[2024-02-04] MEDS: NOVOLOG FLEXPEN-LOW RESISTANCE SC ×2 (09:08→11:57)
[2024-02-04] MEDS: LOW STRENGTH ASPIRIN 81 MG PO (09:09)
[2024-02-04] MEDS: NEURONTIN 300 MG PO ×3 (09:09→22:16)
[2024-02-04] MEDS: WELLBUTRIN XL (24 hour extended release) 300 MG PO (09:09)
[2024-02-04] MEDS: ZYRTEC 10 MG PO (09:10)
[2024-02-04] MEDS: PROTONIX 40 MG PO (09:10)
[2024-02-04] MEDS: OSCAL 500 + D 500 MG PO (09:10)
[2024-02-04] MEDS: COZAAR 25 MG PO (09:11)
[2024-02-04] MEDS: THERAGRAN 1 TABLET PO (09:11)
[2024-02-04] MEDS: DECADRON 4 MG IV (09:12)
[2024-02-04] MEDS: LEXAPRO 20 MG PO (09:12)
[2024-02-04] MEDS: VITAMIN B-12 1000 MCG PO (09:13)
[2024-02-04] MEDS: GLUCOPHAGE 500 MG PO ×2 (09:15→17:22)
[2024-02-04 10:52] VITALS: BMI 21.2
[2024-02-04 11:29] LABS: Glucose - Point of Care 137 mg/dl (70-99)
[2024-02-04] MEDS: DUONEB INH (11:44)
--- NOTE | 2024-02-04 14:37 | VNURNOTE ---
Home Health Liaison met with patient and spouse Michel at 1200 to discuss [facility] nurse/therapy, visits, schedule and homebound status. Patient is agreeable and understands that visits at home will be 2-3 x per week to assess and teach medical management.
[facility] brochure provided with contact information. Patient is aware that [facility] will contact them for start of care in 1-2 days after discharge from .
[facility] referral completed in [facility].
[2024-02-04 15:07] VITALS: BP 152/77
[2024-02-04 15:53] VITALS: BP 152/77
[2024-02-04 16:28] LABS: Glucose - Point of Care 218 mg/dl (70-99)
--- NOTE | 2024-02-04 16:35 | CM ---
Spoke with patient's daughter who called and had questions about hiring private aids. Sent her a list of homemaker companions to [email or web address]. She expressed her appreciation.
Plan: Case management will continue to follow and assist with discharge planning. Home with VN and aides hired by patient's daughter.
[2024-02-04] MEDS: NOVOLOG FLEXPEN-LOW RESISTANCE 2 UNITS SC (17:20)
[2024-02-04] MEDS: ARICEPT 10 MG PO (17:22)
[2024-02-04] MEDS: LIPITOR 80 MG PO (17:23)
[2024-02-04] MEDS: LOVENOX 40 MG SC (17:23)
[2024-02-04 21:32] LABS: Glucose - Point of Care 128 mg/dl (70-99)
[2024-02-04] MEDS: MUCINEX 600 MG PO (22:16)
[2024-02-04] MEDS: PEPCID 40 MG PO (22:16)
[2024-02-04] MEDS: SINGULAIR 10 MG PO (22:16)
[2024-02-04 23:09] VITALS: BP 141/59
[2024-02-05] MEDS: SYNTHROID 25 MCG PO (05:41)
[2024-02-05] MEDS: DUONEB 3 ML INH (07:06)
[2024-02-05 07:33] VITALS: BP 158/73
--- NOTE | 2024-02-05 07:36 | W.PN.HOSP.TC ---
Today's Communication/Plan
-
discharge today
Assessment / Plan
Assessment / Plan
79-year-old female past medical history of COPD/ILD, CAD status post stent, diabetes, mild cognitive impairment, essential hypertension, hyperlipidemia, hypothyroidism, anxiety/depression, peripheral neuropathy, GERD, presenting with generalized
weakness for the past few days associated with decreased p.o. intake. She is having difficulty ambulating and unable to walk and almost falling. She had an episode of vomiting this morning. Denies any sore throat or runny nose or chest pain. She
has chronic cough which is at baseline. No shortness of breath. Pulse ox was in the high 90s today. Does not use oxygen at home. No diarrhea or abdominal pain. No urinary symptoms. No sick contacts. No fevers or chills. Denies any recent
steroid use.
# Generalized weakness suspect viral URI
PT/OT rec HH
Medically stable for discharge home with home care tomorrow
# Mild COPD exacerbation
# History of ILD
Patient satting 93% on room air, was placed on 2 L for comfort
Much improved on IV steroids, currently on oral steroids
Will discharge home on prednisone taper
Continue Breo, montelukast
#Dehydration
Resolved with IV fluids
#UTI ruled out
Patient is afebrile, denies dysuria, leukocytosis resolved without any antibiotics
Urine cultures growing 60,000 colonies of gram-negative rods, not enough to qualify for UTI
Coronary artery disease status post stent
-Continue aspirin
Cognitive Impairment on donepezil
-Monitor
Type 2 diabetes
-Continue metformin
-Insulin sliding scale
Essential hypertension
-Continue losartan
Hyperlipidemia
-Continue statin
Hypothyroidism
-Continue levothyroxine
Anxiety/depression
-Continue bupropion, Lexapro
Peripheral neuropathy
-Continue gabapentin
GERD
-Continue famotidine, omeprazole
Osteoporosis
Former smoker
DVT prophylaxis�SQ Lovenox
Full code
Updated daughter on phone 02/03
Physical Exam
General: No acute distress
HEENT: Normocephalic, Atraumatic, EOMI, MMM
Respiratory: Crackles and rhonchi
Cardiac: Normal S1/S2, Regular Rate and Rhythm
GI: Soft, Nontender, Nondistended, Normal Bowel Sounds
Extremities: No Clubbing, Cyanosis, or Edema
Neuro: Mild memory impairment noted
Psych: Calm, Cooperative
Derm: No Visible lesions
Anticipated Discharge: Today
Subjective/Interval History
-
Date of Service: February 05, 2024
Patient witnessed walking in the hallways without much difficulty. She reports feeling much better today, much stronger. She has a chronic cough. Denies shortness of breath. No fever, no vomiting.
Objective Data
-
Vital Signs:
Vital Signs
Temp Pulse Resp BP Pulse Ox
99.0 F 64 18 158/73 96
02/05/24 07:33 02/05/24 07:33 02/05/24 07:33 02/05/24 07:33 02/05/24 07:08
I&O
02/04/24 02/05/24 02/06/24
06:59 06:59 06:59
Intake Total 360 / 360 720 / 720
Balance 360 / 360 720 / 720
[2024-02-05] MEDS: VITAMIN B-12 1000 MCG PO (07:56)
[2024-02-05] MEDS: NEURONTIN 300 MG PO (07:56)
[2024-02-05] MEDS: LOW STRENGTH ASPIRIN 81 MG PO (07:56)
[2024-02-05] MEDS: PROTONIX 40 MG PO (07:56)
[2024-02-05] MEDS: THERAGRAN 1 TABLET PO (07:56)
[2024-02-05] MEDS: LEXAPRO 20 MG PO (07:56)
[2024-02-05] MEDS: WELLBUTRIN XL (24 hour extended release) 300 MG PO (07:56)
[2024-02-05] MEDS: GLUCOPHAGE 500 MG PO (07:57)
[2024-02-05] MEDS: DELTASONE 40 MG PO (07:57)
[2024-02-05] MEDS: ZYRTEC 10 MG PO (07:58)
[2024-02-05] MEDS: COZAAR 25 MG PO (07:58)
[2024-02-05] MEDS: OSCAL 500 + D 500 MG PO (07:59)
[2024-02-05 08:07] LABS: Glucose - Point of Care 101 mg/dl (70-99)
[2024-02-05] MEDS: NOVOLOG FLEXPEN-LOW RESISTANCE SC (08:14)
--- NOTE | 2024-02-05 10:20 | W.DCSUMMARY ---
Discharge Summary
Discharge Data
Date of Admission: 02/02/24
Date of Discharge: 02/05/24
-
Pending Results: No
Hospital Course
Discharge diagnosis:
Generalized weakness
Mild chronic obstructive pulmonary disease exacerbation
Chronic interstitial lung disease
Dehydration
Urinary tract infection ruled out
Cognitive impairment suspicious for dementia Aricept
Coronary artery disease status post stent placement
Type 2 diabetes, hemoglobin A1c 6.8
Benign essential hypertension
Hyperlipidemia
Hypothyroidism
Anxiety/depression
Gastroesophageal reflux disease
Peripheral neuropathy
Osteoporosis
Hospital course:
79-year-old female with a past medical history of COPD, chronic interstitial lung disease, cognitive impairment on Aricept, coronary artery disease, and type 2 diabetes was admitted for generalized weakness, and worsening of cough. Patient was
found to have a mild COPD exacerbation. Patient was COVID-negative, influenza negative. Her chest x-ray shows moderate interstitial fibrosis without any superimposed acute abnormality. She was satting 93% on room air, she did not need oxygen.
She was treated with IV steroids, and transitioned to oral prednisone.
Patient was mildly dehydrated. She received IV fluids, and felt better.
Patient had generalized weakness. She was seen in conjunction with PT, who recommended home care.
Patient did not have a urinary tract infection. Urine cultures grew out 60,000 colonies of E. coli, not enough to qualify for UTI.
Patient does have cognitive impairment on Aricept. She likely has developing dementia. She does get more confused in the hospital, which is common for her per the daughter.
Patient's medical conditions are optimized. She is medically stable for discharge on a prednisone taper. She needs to follow-up with her primary care doctor in 1 week.
Disposition: Home with home care
Discharge planning: Required 33
Discharge Plan
-
Patient Disposition: Home with Home Care
Discharge Diagnosis/Procedures: Mild chronic obstructive pulmonary disease exacerbation, cough, mild dementia, weakness, dehydration
Condition: Good
Diet: Regular
Activity: As tolerated
Other Services: VN and PT
Activity Restrictions/Additional Instructions:
Please rest, drink plenty of fluids.
Take the prednisone taper as directed, follow-up with your primary care doctor 1 week.
Referrals:
Margie Burkett MD [Family Provider] - in one week
Prescriptions:
New
prednisone 10 mg Tablet
See Rx Instructions .ROUTE .COMPLEX Qty: 30 0RF
Rx Instructions:
Take By Mouth:
40 mg daily x3 days, 30 mg daily x3 days,
20 mg daily x3 days, 10 mg daily x3 days.
Continued
metformin 500 MG tablet
500 mg PO BID@0800,1700
atorvastatin 80 MG tablet
80 mg PO QPM
cyanocobalamin (vitamin B-12) 1,000 MCG tablet
1,000 mcg PO DAILY Qty: 0
albuterol sulfate 1 PUFF HFA aerosol inhaler
2 puff inhalation R Q4HPRN PRN (Reason: sob)
acetaminophen 325 MG tablet
650 mg PO Q4HPRN PRN (Reason: mild pain ) Qty: 0 0RF
ipratropium-albuterol 3 ML solution for nebulization
3 ml inhalation R Q4HPRN PRN (Reason: shortness of breath/wheezing) Qty: 0 0RF
aspirin 81 MG tablet,chewable
81 mg PO DAILY Qty: 0 0RF
cetirizine 10 MG tablet
10 mg PO DAILY
losartan 25 MG tablet
25 mg PO DAILY
montelukast 10 MG tablet
10 mg PO HS
guaifenesin [Mucus Relief ER] 600 MG tablet extended release 12hr
600 mg PO Q12 PRN (Reason: congestion)
escitalopram oxalate 20 MG tablet
20 mg PO DAILY
donepezil 5 mg tablet
10 mg PO QPM
levothyroxine 25 mcg tablet
25 mcg PO DAILY AT 0700
gabapentin 300 mg capsule
300 mg PO TID
bupropion HCl 300 mg tablet extended release 24 hr
300 mg PO DAILY
risedronate 150 mg tablet
150 mg PO MONTHLY
fluticasone furoate-vilanterol [Breo Ellipta] 100-25 mcg/dose blister with device
1 inh INHALATION R DAILY
calcium carbonate-vitamin D3 [Calcium 600 + D(3)] 600 mg-10 mcg (400 unit) Tablet
1 tab PO DAILY
meclizine 25 mg tablet
12.5 mg PO TID PRN (Reason: dizziness)
multivitamin Tablet
1 tab PO DAILY
famotidine 40 mg Tablet
40 mg PO HS
omeprazole 20 mg Capsule,Delayed Release(Dr/Ec)
40 mg PO DAILY
Discharge Orders:
Discharge Patient (As Directed); Ordered 02/05/24
Ordered By: Austen Lora
Discharge Date and Time
Discharge Date/Time: 02/05/24 11:59
Print Language: ESTONIAN
[2024-02-05] MEDS: DUONEB INH (11:09)
[2024-02-05 11:15] VITALS: BP 139/59
== END 2024-02-05 11:59 | disposition home health service (06) | DRG 191 ==
LOC: 3 WEST ACU 16:53
PROVIDERS: Physician Assistant; ADMITTING PHYSICIAN Hospitalist; ATTENDING PHYSICIAN Family Medicine; EMERGENCY PHYSICIAN Emergency Medicine; FAMILY PHYSICIAN Family Medicine
DX: J44.1 Chronic obstructive pulmonary disease with (acute) exacerbation (principal); F03.A3 Unspecified dementia, mild, with mood disturbance; J84.9 Interstitial pulmonary disease, unspecified; F03.A4 Unspecified dementia, mild, with anxiety; E86.0 Dehydration; F32.A Depression, unspecified; I25.10 Atherosclerotic heart disease of native coronary artery without angina pectoris; E11.42 Type 2 diabetes mellitus with diabetic polyneuropathy; I10 Essential (primary) hypertension; E78.00 Pure hypercholesterolemia, unspecified; E03.9 Hypothyroidism, unspecified; K21.9 Gastro-esophageal reflux disease without esophagitis; M81.0 Age-related osteoporosis without current pathological fracture; R26.2 Difficulty in walking, not elsewhere classified; Z95.5 Presence of coronary angioplasty implant and graft; Z79.82 Long term (current) use of aspirin; Z79.84 Long term (current) use of oral hypoglycemic drugs; Z87.891 Personal history of nicotine dependence
CPT/HCPCS: 71046; 80048; 80053; 81003; 81015; 82962; 83036; 83880; 84484; 85025; 87077; 87086; 87186; 87502; 87811; 93005; 94640; 96374; 97116; 97162; 97166; 99285

== ENCOUNTER 2024-07-27 02:02 | Inpatient (IN) | payer MEDICARE, SELFPAY ==
[2024-07-26 23:07] VITALS: BP 147/72
[2024-07-26 23:09] VITALS: BP 147/72; BMI 21.1
[2024-07-26] MEDS: MORPHINE SULFATE 2 MG IV (23:58)
[2024-07-26] MEDS: ZOFRAN 4 MG IV (23:58)
[2024-07-27] VITALS (7 sets, daily range): BP systolic 113–156; BP diastolic 54–85; BMI 19.4
--- NOTE | 2024-07-27 00:31 | ED.GENMED ---
History of Present Illness
General
Chief Complaint: Fall
Time Seen by Provider: 07/26/24 23:17
History of Present Illness
History of Present Illness:
79-year-old female with history of asthma, COPD, pulmonary fibrosis, hypertension, hyperlipidemia, and cvu-yhakcmy-koihtmgjs diabetes presents to the emergency department for evaluation of left hip pain after a ground-level fall. Was given
prehospital fentanyl with minimal improvement. No obvious shortening or external rotation on arrival. Denies any head strike. Does not take anticoagulants
Past History
Past History
ED Past Medical History: CAD, COPD, GERD, HTN, Hypercholesterolemia, NIDDM and Other (Ischemic cardiomyopathy with EF of 20-25%, interstitial lung disease, asthma)
ED Past Surgical History: Appendectomy and Cholecystectomy
Social History
Tobacco: Former smoker (quit )
Alcohol: None
Drug: None
Personal:
Living: care home
Employment: Retired
Family History
Family History: Other (Grandmother with coronary disease father with cancer)
Review of Systems
Review of Systems
Allergies reviewed?: Yes
All Other Systems: ROS reviewed and negative except as documented in HPI and ROS
Phy Exam
Physical Exam
Physical Exam:
GEN: Well appearing, NAD, WDWN
HEENT: Oral mucosa moist, no scleral icterus
Cardiac: Regular rate
Lung: No respiratory distress, no tachypnea
MSK: Tenderness to the left inguinal region with no gross deformity, no obvious shortening or external rotation
Skin: Good color, no pallor or jaundice, no rashes
Neuro: AO x3, moves all extremities freely
Psych: Calm, cooperative
Course
Orders/Labs/Results
Orders:
Orders
07/26/24 23:01
Hip, Left 2-3 Views [CR Hip - LT w/wo Pel 2-3 Vw*] Urgent
Comment:
Reason For Exam: fall
Include a pelvis x-ray?: Yes
07/26/24 23:37
Complete Blood Count/With Diff Urgent
Comprehensive Metabolic Panel Urgent
07/26/24 23:44
Morphine Sulfate 2 mg IV NOW STA
07/26/24 23:46
Ondansetron Injectable [Zofran] 4 mg .ROUTE .STK-MED ONE
07/26/24 23:58
Ondansetron Injectable [Zofran] 4 mg IV NOW STA
07/27/24 00:15
CT Pelvis W/o Iv Contrast Urgent
Reason For Exam: poss L hip fx
07/27/24 01:18
Albuterol [ProAIR HFA INHALER] 2 puff INH R Q4HPRN PRN
07/27/24 01:26
Admit/Transfer Patient As Directed
Co-Sign Provider:
Level of Care: Inpatient admission
Assign to:: Medical/Surgical
Physician / Group: hospitalist
Diagnosis: l femur fracture
Reason for Hospitalization: l femur fracture
Expected length of stay greater than two midnights?: Yes
ELOS- Estimated Length of Stay in days: 2
I certify the patient meets the requirements for IP care: Yes
PRN Pain Medication Management As Directed
May give lesser potent ordered pain med per pt: Yes
preference::
Protocol:: Medication orders for pain may be administered in a
manner that supports deferring to patient preference
when the pt is:
- Requesting an ordered lesser potent pain medication.
Least to most potent pain medications are defined
as: acetaminophen < NSAID < tramadol < opioids
(morphine, oxycodone, hydromorphone).
- Requesting a lesser dose of the same medication IF
ORDERED.
- Requesting a less intrusive route of administration
if both routes are prescribed by the provider (PO <
IV).
07/27/24 01:27
Code Status As Directed
Resuscitation Status: Full Code
07/27/24 02:00
Flush (0.9% Sodium Chloride) [Flush (Nss)] See Dose Instructions IV PER PROTOCOL
07/27/24 07:00
Levothyroxine [Synthroid] 25 mcg PO DAILY @ 0600
07/27/24 08:00
Aspirin Chewable [Low Strength Aspirin] 81 mg PO DAILY
Bupropion(24Hr)Extended Releas [WELLBUTRIN XL (24 hour extended release)] 300 mg PO DAILY
Cetirizine HCl [Zyrtec] 10 mg PO DAILY
Cyanocobalamin [Vitamin B-12] 1,000 mcg PO DAILY
Escitalopram Oxalate [Lexapro] 20 mg PO DAILY
Gabapentin [Neurontin] 300 mg PO BID
Losartan [Cozaar] 25 mg PO DAILY
METFORMIN HCl [Glucophage] 500 mg PO BID@0800,1700
Memantine HCl [Namenda] 10 mg PO BID
Pantoprazole [Protonix] 40 mg PO DAILY
vibegron [Gemtesa] See Dose Instructions PO DAILY
07/27/24 18:00
Atorvastatin [Lipitor] 80 mg PO QPM
Donepezil HCl [Aricept] 10 mg PO QPM
Abnormal Lab Results
07/27/24
00:14
WBC 11.9 H 10^3/uL
(4.8-10.8)
Abs Immat Gran (auto) 0.2 H 10^3/uL
(0-0.05)
Absolute Neuts (auto) 9.9 H 10^3/uL
(1.4-6.5)
Absolute Lymphs (auto) 1.0 L 10^3/uL
(1.2-3.4)
Immature Gran % 1.5 H %
(0-0.5)
Neutrophils % 83.1 H %
(42.2-75.2)
Lymphocytes % 8.7 L %
(20.5-51.1)
Sodium 132 L mmol/L
(135-145)
Chloride 93 L mmol/L
(98-107)
Carbon Dioxide 31 H mmol/L
(22-30)
BUN 21 H mg/dl
(7-17)
Creatinine 1.1 H mg/dL
(0.6-1.0)
Glucose 172 H mg/dl
(70-99)
ALT 42 H U/L
(0-35)
Alkaline Phosphatase 194 H U/L
(38-126)
07/27/24 00:14
07/27/24 00:14
Vital Signs
Initial and Last Documented VS:
Initial Vital Signs
Pulse Resp BP
78 13 147/72
07/26/24 23:07 07/26/24 23:07 07/26/24 23:07
Last Documented Vital Signs
Temp Pulse Resp BP Pulse Ox
98.6 F 79 22 131/66 97
07/26/24 23:09 07/27/24 01:11 07/27/24 01:11 07/27/24 01:11 07/27/24 01:11
MDM/Problems Addressed
MDM/Problems Addressed:
Initial x-ray was equivocal, suspicion for subcapital femoral neck fracture but this was not clear on my interpretation, subsequent CT scan confirms the presence of a left subcapital femoral neck fracture. Patient will be admitted to the
hospitalist service, orthopedic on-call made aware
*Critical Care Note
Total Time (30-74mins, 75-104mins- exclusive of procedures): Not Applicable
ED Attending Note
-
Portions of this chart may have been created with voice recognition software.� Occasional wrong word or��sound alike� substitutions may have occurred due to the inherent limitations of voice recognition software.
Discharge Plan
Departure
Patient Disposition: Admit
Date of Disposition: 07/27/24
Time of Disposition: 00:33
Admit to: Med/Surg
Presentation/result/management discussed w/ accepting MD/DO: Hospitalist
Discharge Problem:
Closed subcapital fracture of neck of left femur
Prescriptions:
No Action
metformin 500 MG tablet
500 mg PO BID@0800,1700
atorvastatin 80 MG tablet
80 mg PO QPM
cyanocobalamin (vitamin B-12) 1,000 MCG tablet
1,000 mcg PO DAILY Qty: 0
albuterol sulfate 1 PUFF HFA aerosol inhaler
2 puff inhalation R Q4HPRN PRN (Reason: sob)
acetaminophen 325 MG tablet
650 mg PO Q4HPRN PRN (Reason: mild pain ) Qty: 0 0RF
ipratropium-albuterol 3 ML solution for nebulization
3 ml inhalation R Q4HPRN PRN (Reason: shortness of breath/wheezing) Qty: 0 0RF
aspirin 81 MG tablet,chewable
81 mg PO DAILY Qty: 0 0RF
cetirizine 10 MG tablet
10 mg PO DAILY
losartan 25 MG tablet
25 mg PO DAILY
guaifenesin [Mucus Relief ER] 600 MG tablet extended release 12hr
600 mg PO Q12 PRN (Reason: congestion)
escitalopram oxalate 20 MG tablet
20 mg PO DAILY
donepezil 5 mg tablet
10 mg PO QPM
levothyroxine 25 mcg tablet
25 mcg PO DAILY AT 0700
gabapentin 300 mg capsule
300 mg PO BID
bupropion HCl 300 mg tablet extended release 24 hr
300 mg PO DAILY
risedronate 150 mg tablet
150 mg PO MONTHLY
calcium carbonate-vitamin D3 [Calcium 600 + D(3)] 600 mg-10 mcg (400 unit) Tablet
1 tab PO DAILY
multivitamin Tablet
1 tab PO DAILY
omeprazole 20 mg Capsule,Delayed Release(Dr/Ec)
20 mg PO DAILY
memantine 5 mg Tablet
10 mg PO BID
Gemtesa 75 mg Tablet
75 mg PO DAILY
Referrals:
Margie Burkett MD [Family Provider] -
Interventions
Interventions:
*Risk Screen - Suicide Last Done: 07/26/24 23:09
*General Assessment Last Done: 07/26/24 23:09
*Neglect/Abuse Screening Last Done: 07/26/24 23:09
*ED COVID-19 Vaccine History Last Done: 07/26/24 23:09
ED-Musculoskeletal Assessment Last Done: 07/26/24 23:12
ED- Neurological Assessment Last Done: 07/26/24 23:12
ED-Skin Assessment Last Done: 07/26/24 23:12
Discharge Date and Time
Print Language: [email or web address]
[2024-07-27 00:34] LABS: % Basophils 0.4 % (0-2); % Eosinophils 1.5 % (0-6); % Immature Granulocytes 1.5 % (0-0.5); % Lymphocytes 8.7 % (20.5-51.1); % Monocytes 4.8 % (1.7-9.3); % Neutrophils 83.1 % (42.2-75.2); ALT (SGPT) 42 U/L (0-35); AST (SGOT) 34 U/L (14-36); Absolute Basophils 0.1 10^3/uL (0-0.2); Absolute Eosinophils 0.2 10^3/uL (0-0.7); Absolute Immature Granulocytes 0.2 10^3/uL (0-0.05); Absolute Monocytes 0.6 10^3/uL (0.1-0.6); Absolute Neutrophils 9.9 10^3/uL (1.4-6.5); Albumin 3.8 g/dl (3.5-5.0); Alkaline Phosphatase 194 U/L (38-126); Blood Urea Nitrogen 21 mg/dl (7-17); Calcium 8.9 mg/dl (8.4-10.2); Carbon Dioxide 31 mmol/L (22-30); Chloride 93 mmol/L (98-107); Estimated Creatinine Clearance 35 ml/min; Glucose 172 mg/dl (70-99); Hematocrit 41.1 % (37.0-47.0); Hemoglobin 13.8 g/dL (12.0-16.0); Mean Corp Hgb Conc. 33.6 g/dL (33.0-37.0); Mean Corpuscular Volume 92.4 fL (81.0-99.0); Nucleated Red Blood Cells % 0 %; Platelet Count 235 10^3/uL (130-400); Potassium 4.4 mmol/L (3.5-5.1); Red Blood Cell Count 4.45 10^6/uL (4.20-5.40); Red Cell Dist. Width 14.4 % (11.5-14.5); Sodium 132 mmol/L (135-145); Total Bilirubin 0.6 mg/dl (0.2-1.3); Total Protein 6.5 g/dl (6.3-8.2); White Blood Cell Count 11.9 10^3/uL (4.8-10.8); eGFR 50.48
--- NOTE | 2024-07-27 01:46 | HPS.HSE ---
Family Physician
-
Family Physician: Margie Burkett
Chief Complaint
-
Fall
History of Present Illness
Is an 79-year-old female with past medical history significant for CAD status post ID and PCI, ischemic admitted with the, hypothyroidism, COPD, and stage dementia, wkr-vvzbbju-elvdbyawv diabetes who presents to the emergency department following a
fall and presyncopal episode at home.
Patient was sitting on a bench along with her spouse. She tried to turn around on the bench she slipped and fell onto her left side. She did not injure her head. She had no loss of consciousness at that time. Patient was helped up by spouse and
she was able to walk back into her house. She had dinner. Thereafter and when she attempted to walk in the home she leaned down to her and did not respond for a few seconds. He got her rollator to help her to walk into the living room.
She attempted to do that she had another brief episode where she did not respond. He then put her on the floor and called EMS. When EMS arrived patient was alert and oriented and responsive normally. She had severe pain on her left hip and could
not walk.
In the emergency department she was afebrile, blood pressure 147/70, pulse was 79. Saturation was 90% on room air. She had a CT of the pelvis which showed a left femoral neck compound fracture. CBC was unremarkable. Chemistries were all within
normal limits.
Medical History
Past Medical History
Past Medical History: Reports CAD, COPD, Dementia, GERD, HTN, Hypercholesterolemia, NIDDM and ID
Past Surgical History: Reports None
Social History
Tobacco: Former Smoker
Alcohol: None
Drug: None
Personal:
Living: With Family
Employment: Retired
Family History
Family History: Not pertinent
Allergies / Home Medications
Allergies reflects when Allergies were last updated in [email or web address].
Home Medications with original date entered in [email or web address]
Allergy/Medication List:
Allergies
Allergy/AdvReac Type Severity Reaction Status Date / Time
Sulfa (Sulfonamide Allergy Hives Verified 11/16/23 13:22
Antibiotics)
lisinopril AdvReac cough Verified 11/16/23 13:22
Home Medications
albuterol sulfate 90 mcg/actuation aerosol inhaler 2 puff inhalation R Q4HPRN PRN sob 08/24/16
atorvastatin 80 mg tablet 80 mg PO QPM High Cholesterol 08/24/16
cyanocobalamin (vitamin B-12) 1,000 mcg tablet 1,000 mcg PO DAILY Supplement ##0 08/24/16
metformin 500 mg tablet 500 mg PO BID@0800,1700 Diabetes 08/24/16
acetaminophen 325 mg tablet 650 mg (2 x 325 mg) PO Q4HPRN PRN mild pain ##0 09/04/16
aspirin 81 mg chewable tablet 81 mg PO DAILY ##0 09/04/16
ipratropium 0.5 mg-albuterol 3 mg (2.5 mg base)/3 mL nebulization soln 3 ml inhalation R Q4HPRN PRN shortness of breath/wheezing ##0 09/04/16
cetirizine 10 mg tablet 10 mg PO DAILY Allergies 05/20/19
escitalopram oxalate 20 mg tablet 20 mg PO DAILY Depression 05/20/19
guaifenesin 600 mg tablet, extended release 12 hr (Mucus Relief ER) 600 mg PO Q12 PRN congestion 05/20/19
losartan 25 mg tablet 25 mg PO DAILY Blood Pressure 05/20/19
bupropion HCl 300 mg 24 hr tablet, extended release 300 mg PO DAILY Depression 11/16/23
calcium 600 mg (as carbonate)-vitamin D3 10 mcg (400 unit) tablet (Calcium 600 + D(3)) 1 tab PO DAILY Supplement 11/16/23
donepezil 5 mg tablet 10 mg PO QPM MEMORY 11/16/23
gabapentin 300 mg capsule 300 mg PO BID Neurological Condition 11/16/23
levothyroxine 25 mcg tablet 25 mcg PO DAILY AT 0700 Thyroid 11/16/23
multivitamin 1 tab PO DAILY Supplement 11/16/23
omeprazole 20 mg capsule,delayed release 20 mg PO DAILY Gastrointestinal Issue 11/16/23
risedronate 150 mg tablet 150 mg PO MONTHLY BONE 11/16/23
memantine 5 mg tablet 10 mg PO BID 07/27/24
vibegron 75 mg tablet (Gemtesa) 75 mg PO DAILY 07/27/24
Review of Systems
-
History Source: Patient
Constitutional: Reports No Symptoms
EENT: Reports No Symptoms
Respiratory: Reports No Symptoms
Cardiac: Reports No Symptoms
Abdomen/GI: Reports No Symptoms
: Reports No Symptoms
Musculoskeletal: Reports Joint Pain
Skin: Reports No Symptoms
Neurological: Reports No Symptoms
Endocrine: Reports No Symptoms
Hematologic/Lymphatic: Reports No Symptoms
Psych: Reports No Symptoms
Physical Exam
Vital Signs
Vital Signs
Temp Pulse Resp BP Pulse Ox
98.6 F 79 22 131/66 97
07/26/24 23:09 07/27/24 01:11 07/27/24 01:11 07/27/24 01:11 07/27/24 01:11
Physical Exam
General: Well Developed, Well Nourished and Appears in Distress
HEENT: NormoCephalic, Anicteric, Moist mucous membranes, Atraumatic and Oxygen
Respiratory: Clear
Cardiac: S1/S2 and Regular Rhythm
Breast: Deferred by me
GI: Soft, Non Tender, Non Distended and Normal Bowel Sounds
Rectal: Deferred by Provider
Genito-urinary: Deferred by me
Musculoskeletal: No Clubbing, No Cyanosis, No Edema and Other (limited range of motion of the left hip due to pain. Intact distal pulses)
Skin: Warm
Neuro: AO x 3
Hematologic/Lymphatic: No Lymphadenopathy
Psych: Calm
Laboratory Results
-
07/27/24 00:14
07/27/24 00:14
Laboratory Results
Total Bilirubin 0.6 mg/dl (0.2-1.3) 07/27/24 00:14
AST 34 U/L (14-36) 07/27/24 00:14
ALT 42 U/L (0-35) H 07/27/24 00:14
Alkaline Phosphatase 194 U/L (38-126) H 07/27/24 00:14
Data Reviewed
-
Diagnostic Radiology: Image Personally Visualized and interpreted
CT Scan: Report Reviewed by me
Lab Data: Labs Reviewed by me
Old Records: Reviewed
Impression/Plan
-
IMPRESSION:
PLAN:
1. L. Femoral Neck Fracture -patient with mechanical fall and subsequent closed subcapital left femoral neck fracture. She is in significant pain and nonambulatory.
- admit to med/surg
- pain control
- bed rest
- pt ot
- care cordination
- dvt ppx with lovenox
- orthopedic surgery consulted
2. ICM/CAD -history of ID status post multiple PCI with stents with last procedure several years ago. No recent episodes of chest pain, dyspnea exertion, palpitations. No signs or symptoms of clinical heart failure.
- hold aspirin pending orthopedic eval
- continue rosuvastatin
- continue low dose losartan
3. DM II - On metformin
- continue metformin for now
- sliding scale insulin
4. GERD
- ppi daily
6. COPD - Not on home O2. No wheezing. STable.
- continue budesonide daily,, duonebs bid with prn
7. Dementia
- continue memantine and donepizil
- continue escitalopram
Code Status - Full Code
--- NOTE | 2024-07-27 02:15 | PTCARENOTE ---
Pt arrive to [facility] from ED at 0215 on a stretcher and was pulled over onto the bed. Static overlay in place and palm check performed. Pt on 4L of O2. Head to toe completed. Admission questions completed. Pt oriented to room. Bed looked and in
lowest position. Call garg within reach. Care ongoing.
[2024-07-27 02:54] LABS: Glucose - Point of Care 164 mg/dl (70-99)
[2024-07-27] MEDS: NOVOLOG FLEXPEN-LOW RESISTANCE 1 UNITS SC ×3 (03:04→18:05)
[2024-07-27] MEDS: TYLENOL 650 MG PO ×5 (03:05→21:03)
[2024-07-27] MEDS: MORPHINE SULFATE 2 MG IV (03:05)
[2024-07-27] MEDS: LR 500 IV ×2 (03:11→11:47)
[2024-07-27 06:01] LABS: Glucose - Point of Care 159 mg/dl (70-99)
[2024-07-27] MEDS: SYNTHROID 25 MCG PO (06:18)
[2024-07-27] MEDS: NOVOLOG FLEXPEN-LOW RESISTANCE SC (06:21)
[2024-07-27] MEDS: DUONEB 3 ML INH ×2 (07:05→19:46)
[2024-07-27] MEDS: PULMICORT 0.25 MG INH (07:05)
--- NOTE | 2024-07-27 08:05 | W.PN.UPDATE ---
Update Note
Progress Note Update
Patient seen on AM rounds. Full consult note to follow.
Patient sustained left femoral neck fracture in her fall. Recommend proceeding with percutaneous pinning versus left hip hemiarthroplasty. The risks, benefits, alternatives, recovery process and potential complications were discussed in detail.
Tentatively planned for OR this afternoon under the direction of Dr. Shashi Levi. Pending medical clearance.
--NPO until surgery.
--NWB to LLE until surgery.
--Pain control per primary.
--Abx and irrigation ordered to OR.
--- NOTE | 2024-07-27 08:30 | CON.ORTHO ---
Consultation
-
Date/Time Consultation Requested: 07/27/2024; time unknown
Date/Time Consultation Performed: 07/27/2024; 0645
Requesting Provider: Tobias Bedolla
Performing Provider: Dr. Juve Christine / Shira Brown PA-C
Reason for Consultation: Left femoral neck fracture
Consultation - Orthopedics
History
Patient was seen and evaluated by Dr. Christine.
Ms. Diaz is an 79 year old female with PMH of CAD status post NM and PCI, hypothyroidism, COPD, and stage dementia, erc-jtvpshf-[id number] diabetes seen today for her left hip. She reports slipped and fell off of a bench and landed on her left
side. Her was able to get her up off the ground, and she was able to walk back to the house. Unfortunately when she attempted to walk later in her home, she had difficulty bearing weight. She presented to [facility] via EMS where
x-ray and CT scan of the pelvis showed left femoral neck fracture. She is resting comfortably in bed this morning, but does endorse pain in the hip with any movement. She denies pain elsewhere. She lives independently with her , and
ambulates with the assistance of a cane at baseline. She has a history of NM status post stent and diabetes, but denies past medical history of stroke or blood clots. She denies any known history of difficulty with anesthesia.
Allergies / Home Medications
Allergy/AdvReac Type Severity Reaction Status Date / Time
Sulfa (Sulfonamide Allergy Hives Verified 11/16/23 13:22
Antibiotics)
lisinopril AdvReac cough Verified 11/16/23 13:22
�Medication �Instructions �Recorded
albuterol sulfate 90 mcg/actuation 2 puff inhalation R Q4HPRN PRN sob 08/24/16
aerosol inhaler
atorvastatin 80 mg tablet 80 mg PO QPM High Cholesterol 08/24/16
cyanocobalamin (vitamin B-12) 1,000 mcg PO DAILY Supplement ##0 08/24/16
1,000 mcg tablet
metformin 500 mg tablet 500 mg PO BID@0800,1700 Diabetes 08/24/16
acetaminophen 325 mg tablet 650 mg (2 x 325 mg) PO Q4HPRN PRN 09/04/16
mild pain ##0
aspirin 81 mg chewable tablet 81 mg PO DAILY ##0 09/04/16
ipratropium 0.5 mg-albuterol 3 mg 3 ml inhalation R Q4HPRN PRN 09/04/16
(2.5 mg base)/3 mL nebulization shortness of breath/wheezing ##0
soln
cetirizine 10 mg tablet 10 mg PO DAILY Allergies 05/20/19
escitalopram oxalate 20 mg tablet 20 mg PO DAILY Depression 05/20/19
guaifenesin 600 mg tablet, 600 mg PO Q12 PRN congestion 05/20/19
extended release 12 hr (Mucus
Relief ER)
losartan 25 mg tablet 25 mg PO DAILY Blood Pressure 05/20/19
bupropion HCl 300 mg 24 hr tablet, 300 mg PO DAILY Depression 11/16/23
extended release
calcium 600 mg (as 1 tab PO DAILY Supplement 11/16/23
carbonate)-vitamin D3 10 mcg (400
unit) tablet (Calcium 600 + D(3))
donepezil 5 mg tablet 10 mg PO QPM MEMORY 11/16/23
gabapentin 300 mg capsule 300 mg PO BID Neurological 11/16/23
Condition
levothyroxine 25 mcg tablet 25 mcg PO DAILY AT 0700 Thyroid 11/16/23
multivitamin 1 tab PO DAILY Supplement 11/16/23
omeprazole 20 mg capsule,delayed 20 mg PO DAILY Gastrointestinal 11/16/23
release Issue
risedronate 150 mg tablet 150 mg PO MONTHLY BONE 11/16/23
memantine 5 mg tablet 10 mg PO BID 07/27/24
vibegron 75 mg tablet (Gemtesa) 75 mg PO DAILY 07/27/24
Vital Signs / Lab Results
Temp Pulse Resp BP Pulse Ox
98.3 F 97 16 128/70 97
07/27/24 07:50 07/27/24 07:50 07/27/24 07:50 07/27/24 07:50 07/27/24 07:50
07/27/24 00:14
07/27/24 00:14
X-ray left hip 07/26/2024 independently interpreted by me reveals faint fracture line through the subcapital aspect of the femur.
CT scan of the pelvis 07/27/2024 independently interpreted by me reveal mildly impacted subcapital femur fracture on the left.
Directed exam of the left hip reveals no obvious erythema, ecchymosis, edema or lesions. Tenderness palpation over the anterior hip. Thigh soft and compressible. Range of motion deferred secondary to known fracture. Positive logroll. Calf soft
and nontender. Patient able to plantar and dorsiflex ankle. Neurovascularly intact distally. VSS.
Assessment / Plan
Left femoral neck fracture
-- Unfortunately, Kari sustained a left femoral neck fracture in her fall. I recommend proceeding with surgical intervention of her fracture. The risks, benefits, alternatives, recovery process and potential complications were discussed in
detail. We discussed that proceeding without surgery would involve extended bedrest which poses the risks for blood clots, pneumonia and pressure sores. She elected to proceed with surgical intervention of her fracture. Surgical and blood consent
signed and in the patient's chart. Will plan for left hip hemiarthroplasty versus percutaneous pinning this afternoon under to the direction of Dr. Levi pending medical clearance.
-- N.p.o. until surgery.
--Nonweightbearing to left lower extremity until surgery.
-- Pain control per primary. Ice as needed for pain and edema control.
-- Antibiotics and irrigation ordered to OR.
-- Type and screen ordered.
-- Orthopedics will continue to follow along.
[2024-07-27] MEDS: VITAMIN B-12 1000 MCG PO (08:31)
[2024-07-27] MEDS: PROTONIX 40 MG PO (08:31)
[2024-07-27] MEDS: NEURONTIN 300 MG PO ×2 (08:31→21:03)
[2024-07-27] MEDS: LEXAPRO 20 MG PO (08:31)
[2024-07-27] MEDS: GLUCOPHAGE 500 MG PO (08:31)
[2024-07-27] MEDS: WELLBUTRIN XL (24 hour extended release) 300 MG PO (08:31)
[2024-07-27] MEDS: NAMENDA 10 MG PO ×2 (08:32→21:03)
[2024-07-27] MEDS: COZAAR 25 MG PO (08:32)
[2024-07-27] MEDS: ZYRTEC 10 MG PO (08:32)
--- NOTE | 2024-07-27 08:53 | W.PN.HOSP.TC ---
Today's Communication/Plan
-
NPO
pre-op EKG
repeat BMP
hold Losartan and Metformin
SCD
Assessment / Plan
Assessment / Plan
Ms. Kari Diaz is a 79-year-old female with past medical history significant for CAD status post RI and PCI, hypothyroidism, COPD, dementia, yxp-iyyrxkq-wvjnywqet diabetes who presents to the emergency department following a fall and presyncopal
episode at home.
TTE 12/26/22
CONCLUSIONS
Estimated left ventricular ejection fraction is 50-55%.
Mild basal inferior-inferolateral hypokinesis.
Normal right ventricular size and function.
No significant valvular disease.
No significant change since the prior study of 07/02/2021.
Nuclear Stress Test 12/12/22 - negative for ischemia, fixed defect present from prior RI
1. L. Femoral Neck Fracture -patient with mechanical fall and subsequent closed subcapital left femoral neck fracture.
- admit to med/surg
- ortho consulted, plan for OR later today or tomorrow
- pain control
-pre-op EKG
-if repeat electrolytes stable this AM then will be cleared for OR (discussing with Ortho and RN)
CHADWICK
-creatinine 1.1 yesterday, baseline 0.6
-repeat BMP now
-receiving gentle fluids
-hold INTERNATIONAL SPECIALIST Losartan
2. ICM/CAD -history of RI status post multiple PCI with stents with last procedure several years ago. No recent episodes of chest pain, dyspnea exertion, palpitations. No signs or symptoms of clinical heart failure.
- hold aspirin pending orthopedic eval
- continue rosuvastatin
- hold Losartan with CHADWICK
-she is not on diuretics at home
3. DM II
- hold INTERNATIONAL SPECIALIST Metformin
- sliding scale insulin
4. GERD
- ppi daily
6. COPD - Not on home O2. No wheezing. STable.
- continue budesonide daily,, duonebs bid with prn
7. Dementia
- continue memantine and donepizil
- continue escitalopram
Code Status - Full Code
Anticipated Discharge: > 48 hours
Subjective/Interval History
-
Date of Service: July 27, 2024
Objective Data
-
Labs:
Laboratory Results
07/27/24
00:14
WBC 11.9 H
Hgb 13.8
Hct 41.1
Plt Count 235
Sodium 132 L
Potassium 4.4
Chloride 93 L
Carbon Dioxide 31 H
BUN 21 H
Creatinine 1.1 H
Glucose 172 H
Calcium 8.9
Total Bilirubin 0.6
AST 34
ALT 42 H
Alkaline Phosphatase 194 H
Vital Signs:
Vital Signs
Temp Pulse Resp BP Pulse Ox
98.3 F 97 16 128/70 97
07/27/24 07:50 07/27/24 07:50 07/27/24 07:50 07/27/24 07:50 07/27/24 07:50
I&O
07/26/24 07/27/24 07/28/24
06:59 06:59 06:59
Intake Total 200 / 200
Balance 200 / 200
[2024-07-27 09:33] LABS: Hematocrit 41.4 % (37.0-47.0); Mean Corp Hgb Conc. 33.8 g/dL (33.0-37.0); Mean Corpuscular Hgb 32.5 pg (27.0-31.0); Mean Corpuscular Volume 96.1 fL (81.0-99.0); Mean Platelet Volume 9.5 fL (7.4-10.4); Platelet Count 224 10^3/uL (130-400); Red Blood Cell Count 4.31 10^6/uL (4.20-5.40); Red Cell Dist. Width 14.6 % (11.5-14.5); White Blood Cell Count 8.1 10^3/uL (4.8-10.8)
[2024-07-27 09:48] LABS: Blood Urea Nitrogen 18 mg/dl (7-17); Calcium 8.3 mg/dl (8.4-10.2); Carbon Dioxide 29 mmol/L (22-30); Chloride 95 mmol/L (98-107); Estimated Creatinine Clearance 33 ml/min; Glucose 178 mg/dl (70-99); Potassium 4.2 mmol/L (3.5-5.1); Sodium 136 mmol/L (135-145); eGFR 50.48
--- NOTE | 2024-07-27 09:48 | CM ---
Addendum entered by Vita Ferraro RN 07/27/24 09:52:
CM consult for advance directives received. Copy of [employer].
Original Note:
Reviewed the chart notes and spoke with the patient at the bedside. The patient resides with her spouse in a two story home with four steps to enter. The patient has a rolling walker, cane, shower chair, and shower rails. The patient has had [facility] in the past, but no SNF. The patient confirmed his pharmacy of choice is the [facility]. The patient anticipates going to the OR for femur fracture. CM continues to be available to patient/family and is monitoring medical
plan for needs at discharge.
Plan: Discharge plans will depend on the patient's progress. Might need SNF prior to transitioning back to home.
[2024-07-27 10:08] LABS: Magnesium 1.7 mg/dl (1.6-2.3)
[2024-07-27 11:52] LABS: Glucose - Point of Care 198 mg/dl (70-99)
[2024-07-27 12:06] LABS: Urine Sodium 11 mmol/L (30-90)
[2024-07-27] MEDS: NSS 250 IV (13:49)
[2024-07-27] MEDS: LIPITOR 80 MG PO (17:25)
[2024-07-27] MEDS: ARICEPT 10 MG PO (17:25)
[2024-07-27 17:58] LABS: Glucose - Point of Care 173 mg/dl (70-99)
[2024-07-27 18:36] LABS: Blood Urea Nitrogen 17 mg/dl (7-17); Calcium 8.1 mg/dl (8.4-10.2); Carbon Dioxide 29 mmol/L (22-30); Chloride 96 mmol/L (98-107); Estimated Creatinine Clearance 40 ml/min; Glucose 148 mg/dl (70-99); Potassium 4.3 mmol/L (3.5-5.1); Sodium 135 mmol/L (135-145); eGFR > 60.00
[2024-07-27] MEDS: COLACE 100 MG PO (21:02)
[2024-07-27] MEDS: SENOKOT 17.2 MG PO (21:02)
[2024-07-27] MEDS: LR 1000 IV (21:04)
[2024-07-27 22:01] LABS: Glucose - Point of Care 190 mg/dl (70-99)
[2024-07-28 00:23] LABS: Glucose - Point of Care 124 mg/dl (70-99)
[2024-07-28] MEDS: NOVOLOG FLEXPEN-LOW RESISTANCE SC ×3 (00:51→17:37)
[2024-07-28] MEDS: TYLENOL PO ×4 (00:52→16:10)
[2024-07-28 05:06] VITALS: PULSE 71
[2024-07-28] MEDS: SYNTHROID 25 MCG PO (05:38)
[2024-07-28 06:14] LABS: Glucose - Point of Care 124 mg/dl (70-99)
[2024-07-28 06:54] LABS: Hematocrit 41.5 % (37.0-47.0); Hemoglobin 13.7 g/dL (12.0-16.0); Mean Corpuscular Hgb 31.9 pg (27.0-31.0); Mean Corpuscular Volume 96.5 fL (81.0-99.0); Platelet Count 170 10^3/uL (130-400); Red Cell Dist. Width 14.7 % (11.5-14.5); White Blood Cell Count 7.8 10^3/uL (4.8-10.8)
[2024-07-28 07:17] LABS: Blood Urea Nitrogen 14 mg/dl (7-17); Calcium 8.4 mg/dl (8.4-10.2); Carbon Dioxide 29 mmol/L (22-30); Chloride 98 mmol/L (98-107); Estimated Creatinine Clearance 45 ml/min; Glucose 136 mg/dl (70-99); Potassium 4.4 mmol/L (3.5-5.1); Sodium 138 mmol/L (135-145); eGFR > 60.00
[2024-07-28] MEDS: PULMICORT 0.25 MG INH (07:36)
[2024-07-28] MEDS: DUONEB 3 ML INH ×2 (07:36→20:40)
--- NOTE | 2024-07-28 07:49 | W.PN.UPDATE ---
Addendum entered and electronically signed by Chase St MD 07/28/24 17:35:
I saw and evaluated the patient at bedside this morning. We discussed her fracture pattern and discussed left hip hemiarthroplasty. We discussed the recovery process. Unfortunately as we were planning to head back to the OR room around 4:30 PM
today, emergent operative cases were identified, and the OR notified my team and me that the case was on hold for an indefinite amount of time this evening. I discussed with the patient that given the present anticipated timing of surgery quite
late in the evening and that arthroplasty is a specialized surgery that is best performed with a familiar operative team and with appropriate time to recover after the surgery with postoperative and nursing staff, decision was made to postpone the
surgery until tomorrow. My colleague Dr. Salguero anticipates availability earlier in the day tomorrow to treat her left hip fracture.
Jason St MD
Original Note:
Update Note
Progress Note Update
Patient was relatively comfortable overnight. She is scheduled for left hip hemiarthroplasty later today with Dr. St. She has been n.p.o. IV antibiotics, antibiotic irrigation and TXA irrigation has been ordered. It looks like Lovenox has
been held.
[2024-07-28 07:58] VITALS: BP 164/89
[2024-07-28] MEDS: SENOKOT PO (08:11)
[2024-07-28] MEDS: VITAMIN B-12 PO (08:11)
[2024-07-28] MEDS: COLACE PO (08:11)
[2024-07-28] MEDS: ZYRTEC PO (08:11)
--- NOTE | 2024-07-28 08:33 | W.PN.HOSP.TC ---
Addendum entered and electronically signed by Annalise Isaac MD 07/28/24 11:18:
updated daughter. she tells me that patient's wishes are no CPR; short term intubation OK
code status changed
Original Note:
Today's Communication/Plan
-
medically optimized for surgery
NPO for OR
Assessment / Plan
Assessment / Plan
Ms. Kari Diaz is a 79-year-old female with past medical history significant for CAD status post WA and PCI, hypothyroidism, COPD, dementia, klp-fgqhyrb-oytwdoxvg diabetes who presents to the emergency department following a fall and presyncopal
episode at home.
TTE 12/26/22
CONCLUSIONS
Estimated left ventricular ejection fraction is 50-55%.
Mild basal inferior-inferolateral hypokinesis.
Normal right ventricular size and function.
No significant valvular disease.
No significant change since the prior study of 07/02/2021.
Nuclear Stress Test 12/12/22 - negative for ischemia, fixed defect present from prior WA
1. L. Femoral Neck Fracture -patient with mechanical fall and subsequent closed subcapital left femoral neck fracture.
- admitted to med/surg
- ortho consulted, plan for OR later today
- pain control
-pre-op EKG done
--> patient is medically optimized for surgery with resolution of CHADWICK. She has no new episodes of chest pain or shortness of breath and is euvolemic on exam. Benefits of surgery outweigh risks - discussed with daughter on phone 07/27/24
CHADWICK
-resolved with IVF
-patient is not on diuretics at home, per daughter she often doesn't drink fluids
2. ICM/CAD -history of WA status post multiple PCI with stents with last procedure several years ago. No recent episodes of chest pain, dyspnea exertion, palpitations. No signs or symptoms of clinical heart failure.
- hold aspirin
- continue rosuvastatin
- hold Losartan pre-op
-she is not on diuretics at home
3. DM II
- hold ENGINEERING INSPECTION ASSISTANT Metformin
- sliding scale insulin
4. GERD
- ppi daily
6. COPD - Not on home O2. No wheezing. STable.
- continue budesonide daily,, duonebs bid with prn
7. Dementia
- continue memantine and donepizil
- continue escitalopram
Code Status - Full Code
Anticipated Discharge: > 48 hours
Subjective/Interval History
-
Date of Service: July 28, 2024
no new complaints this morning
no chest pain or shortness of breath
Objective Data
-
Labs:
Laboratory Results
07/28/24
05:20
WBC 7.8
Hgb 13.7
Hct 41.5
Plt Count 170 D
Sodium 138
Potassium 4.4
Chloride 98
Carbon Dioxide 29
BUN 14
Creatinine 0.8
Glucose 136 H
Calcium 8.4
Vital Signs:
Vital Signs
Temp Pulse Resp BP Pulse Ox
98.6 F 87 16 164/89 100
07/28/24 07:58 07/28/24 07:58 07/28/24 07:58 07/28/24 07:58 07/28/24 07:58
I&O
07/27/24 07/28/24 07/29/24
06:59 06:59 06:59
Intake Total 200 / 200 1820 / 1820
Output Total 850 / 850
Balance 200 / 200 970 / 970
Review of Systems
-
History Source: Patient
All other systems: Reviewed and negative
Physical Exam
-
General: Well Developed, Well Nourished, Comfortable and Conversant
HEENT: Normocephalic, Atraumatic, Nose Appears Normal and Ears Appear Normal; Negative Oxygen (wean off O2)
Respiratory: Clear to Auscultation and Non Labored Respirations; Negative Accessory Resp Muscle Use
Cardiac: Regular Rhythm and S1/S2
GI: Soft, Nontender, Nondistended and Normal Bowel Sounds
Skin: Warm and Dry
Neuro: Awake
Psych: Calm and Intact Judgement/Insight
Data Reviewed
-
Diagnostic Radiology: Report Reviewed by me
Labs: Labs Reviewed by me
[2024-07-28] MEDS: WELLBUTRIN XL (24 hour extended release) 300 MG PO (08:53)
[2024-07-28] MEDS: TYLENOL 650 MG PO ×2 (08:53→21:54)
[2024-07-28] MEDS: NAMENDA 10 MG PO ×2 (08:53→21:55)
[2024-07-28] MEDS: LEXAPRO 20 MG PO (08:53)
[2024-07-28] MEDS: PROTONIX 40 MG PO (08:53)
[2024-07-28] MEDS: NEURONTIN 300 MG PO ×2 (08:53→21:53)
[2024-07-28 09:07] VITALS: BMI 19.8
--- NOTE | 2024-07-28 10:22 | CM ---
Reviewed the chart notes. Patient anticipates going to OR today for fracture repair. PT/OT will need to evaluate patient after surgery to aid in discharge planning. CM continues to be available to patient/family and is monitoring medical plan for
needs at discharge.
Plan: Discharge plans will depend on the patient's progress.
[2024-07-28 11:59] LABS: Glucose - Point of Care 154 mg/dl (70-99)
[2024-07-28] MEDS: LR 1000 IV (12:08)
[2024-07-28] MEDS: NOVOLOG FLEXPEN-LOW RESISTANCE 1 UNITS SC (12:09)
[2024-07-28 15:36] VITALS: BP 126/65
[2024-07-28 16:45] VITALS: BP 135/76
--- NOTE | 2024-07-28 16:47 | PTCARENOTE ---
Patient returned from pre-op holding area; Bed in lowest position, wheels locked; Call garg within reach; Bed alarm armed; Care ongoing
[2024-07-28 17:31] LABS: Glucose - Point of Care 128 mg/dl (70-99)
[2024-07-28] MEDS: ARICEPT 10 MG PO (17:37)
[2024-07-28] MEDS: LIPITOR 80 MG PO (17:37)
[2024-07-28 21:50] LABS: Glucose - Point of Care 182 mg/dl (70-99)
[2024-07-28] MEDS: SENOKOT 17.2 MG PO (21:54)
[2024-07-28] MEDS: COLACE 100 MG PO (21:55)
[2024-07-28 23:42] VITALS: BP 141/85
[2024-07-28 23:57] LABS: Glucose - Point of Care 146 mg/dl (70-99)
[2024-07-29] MEDS: TYLENOL PO ×2 (00:01→05:07)
--- NOTE | 2024-07-29 04:24 | PTCARENOTE ---
Pt arrived in bed from PACU at 0115. Pt is AAOX3 but drowsy. VSS. Pt 100% on 2LO2. surgical site inspected with PACU nurse. Midline insicion covered with primaseal dressing scant drainage. LLQ jackie drain in place. R side ileostomy. stoma red and
budded. mclean in place draining red/brown urine. L nare NGT to cont sunction draining brown/ green contents. Pt tolerating NGT. Pts family at bedside. Assessment ongoing.
[2024-07-29] MEDS: LR 1000 IV (05:04)
[2024-07-29] MEDS: SYNTHROID 25 MCG PO (05:05)
[2024-07-29] MEDS: TYLENOL 650 MG PO ×2 (05:20→08:56)
[2024-07-29 05:51] LABS: Glucose - Point of Care 135 mg/dl (70-99)
[2024-07-29] MEDS: NOVOLOG FLEXPEN-LOW RESISTANCE SC ×2 (05:53)
--- NOTE | 2024-07-29 06:17 | PTCARENOTE ---
first set of CHG wipes complete and linens changed.
[2024-07-29 06:25] LABS: Hematocrit 38.4 % (37.0-47.0); Hemoglobin 12.8 g/dL (12.0-16.0); Mean Corp Hgb Conc. 33.3 g/dL (33.0-37.0); Mean Corpuscular Hgb 32.3 pg (27.0-31.0); Mean Platelet Volume 10.1 fL (7.4-10.4); Platelet Count 193 10^3/uL (130-400); Red Blood Cell Count 3.96 10^6/uL (4.20-5.40); Red Cell Dist. Width 14.8 % (11.5-14.5); White Blood Cell Count 7.6 10^3/uL (4.8-10.8)
[2024-07-29 06:28] LABS: Blood Urea Nitrogen 15 mg/dl (7-17); Calcium 8.4 mg/dl (8.4-10.2); Carbon Dioxide 34 mmol/L (22-30); Chloride 97 mmol/L (98-107); Estimated Creatinine Clearance 41 ml/min; Glucose 137 mg/dl (70-99); Potassium 4.6 mmol/L (3.5-5.1); Sodium 137 mmol/L (135-145); eGFR > 60.00
[2024-07-29] MEDS: DUONEB 3 ML INH (07:14)
[2024-07-29] MEDS: PULMICORT 0.25 MG INH (07:14)
[2024-07-29 07:57] VITALS: BP 157/72
--- NOTE | 2024-07-29 08:42 | W.PN.HOSP.TC ---
Addendum entered and electronically signed by Annalise Isaac MD 07/31/24 07:07:
Multifactorial, low level trauma and age related osteoporosis
Original Note:
Today's Communication/Plan
-
NPO for OR
Assessment / Plan
Assessment / Plan
Ms. Kari Diaz is a 79-year-old female with past medical history significant for CAD status post ND and PCI, hypothyroidism, COPD, dementia, [id number] diabetes who presents to the emergency department following a fall and presyncopal
episode at home.
TTE 12/26/22
CONCLUSIONS
Estimated left ventricular ejection fraction is 50-55%.
Mild basal inferior-inferolateral hypokinesis.
Normal right ventricular size and function.
No significant valvular disease.
No significant change since the prior study of 07/02/2021.
Nuclear Stress Test 12/12/22 - negative for ischemia, fixed defect present from prior ND
1. L. Femoral Neck Fracture -patient with mechanical fall and subsequent closed subcapital left femoral neck fracture.
- admitted to med/surg
- ortho consulted, plan for OR today (got postponed yesterday 11/27 emergent case)
- pain control
-pre-op EKG done
--> patient is medically optimized for surgery with resolution of CHADWICK. She has no new episodes of chest pain or shortness of breath and is euvolemic on exam. Benefits of surgery outweigh risks - discussed with daughter on phone 07/27/24
CHADWICK
-resolved with IVF
-patient is not on diuretics at home, per daughter she often doesn't drink fluids
2. ICM/CAD -history of ND status post multiple PCI with stents with last procedure several years ago. No recent episodes of chest pain, dyspnea exertion, palpitations. No signs or symptoms of clinical heart failure.
- hold aspirin
- continue rosuvastatin
- hold Losartan pre-op
-she is not on diuretics at home
3. DM II
- hold L[employer] Metformin
- sliding scale insulin
4. GERD
- ppi daily
6. COPD - Not on home O2. No wheezing. STable.
- continue budesonide daily,, duonebs bid with prn
7. Dementia
- continue memantine and donepizil
- continue escitalopram
Code Status - Full Code
Anticipated Discharge: 24 - 48 hours
Subjective/Interval History
-
Date of Service: July 29, 2024
no chest pain or shortness of breath
awaiting surgery
had a BM this morning
Objective Data
-
Labs:
Laboratory Results
07/29/24
05:28
WBC 7.6
Hgb 12.8
Hct 38.4
Plt Count 193
Sodium 137
Potassium 4.6
Chloride 97 L
Carbon Dioxide 34 H
BUN 15
Creatinine 0.9
Glucose 137 H
Calcium 8.4
Vital Signs:
Vital Signs
Temp Pulse Resp BP Pulse Ox
97.7 F 80 17 157/72 96
07/29/24 07:57 07/29/24 07:57 07/29/24 07:57 07/29/24 07:57 07/29/24 07:57
I&O
07/28/24 07/29/24 07/30/24
06:59 06:59 06:59
Intake Total 1820 / 1820 840 / 840
Output Total 850 / 850 1790 / 1790
Balance 970 / 970 -950 / -950
Review of Systems
-
History Source: Patient
All other systems: Reviewed and negative
Physical Exam
-
General: Well Developed, Well Nourished, Comfortable and Conversant
HEENT: Normocephalic, Atraumatic, Nose Appears Normal and Ears Appear Normal; Negative Oxygen (wean off O2)
Respiratory: Clear to Auscultation and Non Labored Respirations; Negative Accessory Resp Muscle Use
Cardiac: Regular Rhythm and S1/S2
GI: Soft, Nontender, Nondistended and Normal Bowel Sounds
Skin: Warm and Dry
Neuro: Awake
Psych: Calm and Intact Judgement/Insight
Data Reviewed
-
Diagnostic Radiology: Report Reviewed by me
Labs: Labs Reviewed by me
[2024-07-29] MEDS: PROTONIX 40 MG PO (08:56)
[2024-07-29] MEDS: NEURONTIN 300 MG PO (08:56)
[2024-07-29] MEDS: NAMENDA 10 MG PO (08:56)
[2024-07-29] MEDS: SENOKOT 17.2 MG PO (08:56)
[2024-07-29] MEDS: LEXAPRO 20 MG PO (08:57)
[2024-07-29] MEDS: WELLBUTRIN XL (24 hour extended release) 300 MG PO (08:57)
[2024-07-29] MEDS: COLACE 100 MG PO (08:57)
[2024-07-29] MEDS: ZYRTEC 10 MG PO (08:58)
[2024-07-29] MEDS: VITAMIN B-12 1000 MCG PO (08:58)
[2024-07-29 09:10] VITALS: BMI 19.6
--- NOTE | 2024-07-29 12:13 | PTCARENOTE ---
Pt to be transferred to ICU, report given to denzel COTTO
--- NOTE | 2024-07-29 12:55 | PN.CDI ---
CDI
- -
CDI:
Physician Documentation Request
Admit Date: 07/27/24 02:02
Dear Doctor Marlin,
Please review the following and provide your response in the progress notes.
Clinical Indicators:
H+P, 07/27
#...was sitting on a bench along with her spouse.
#...She tried to turn around on the bench she slipped and fell onto her left side.
1. L. Femoral Neck Fracture -patient with mechanical fall and subsequent closed subcapital left femoral neck fracture. She is in significant pain and nonambulatory.
- admit to med/surg
Please clarify the following regarding the etiology of the left femoral neck fracture:
Multifactorial, low level trauma and age related osteoporosis
Traumatic fracture only
Other (please specify)
Type Fracture
Age-related With current pathological fx
Drug induced (specify drug) without current pathological fx
Idiopathic
Osteoporosis of disuse
Due to post surgical malabsorption
Post traumatic
Post oophorectomy osteoporosis
Use of terms such as suspected, likely, concern for, or probable (associated with a specific diagnosis that is being evaluated, monitored, or treated as if it exists) are acceptable and can be coded in the inpatient setting, when documented at the
time of discharge.
Thank you,
Dunia Stapleton RN BSN CCDS
CDI Specialist
please contact via tiger text
Please use your independent medical judgment in providing your response.
--- NOTE | 2024-07-29 13:08 | W.PN.UPDATE ---
Documented by User: Jamie Ferrell PA-C 07/29/24 13:09
Update Note
Progress Note Update
pt was seen this AM on morning rounds
case was deferred yesterday for left hip hemiarthoplasty de to emergent add on case
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
no current contraindications for OR
will update orders postop

Documented by User: Jorje Salguero MD 07/29/24 15:09
Update Note
Progress Note Update
pt was seen this AM on morning rounds
case was deferred yesterday for left hip hemiarthoplasty de to emergent add on case
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
no current contraindications for OR
will update orders postop
Addendum at 3:08PM
This note was placed on the chart after the patient had gone to the OR but was placed related to the patient being seen on AM rounds.
--- NOTE | 2024-07-29 15:01 | W.DCSUMMARY ---
Discharge Summary
Discharge Data
Date of Admission: 07/27/24
Date of Discharge: 07/29/24
-
Pending Results: No
Hospital Course
Date of : 07/29/24
Primary care physician : Dr. Margie Burkett
Hospital Course :
Ms. Kari Diaz is a 79-year-old female with past medical history significant for CAD status post DC and PCI, hypothyroidism, COPD, dementia, kch-pgskkpo-cmwnpgzye diabetes who presents to the emergency department following a fall and presyncopal
episode at home found to have a left femoral neck fracture. Initial labs significant for mild CHADWICK which improved with IVF. She was cleared for surgery and went to the OR on 07/29/24. Unfortunately, patient had a cardiac arrest in the OR and
passed. Family was updated.
Important imaging findings :
Pelvis CT 07/27/24
IMPRESSION:
There is an acute nondisplaced oblique transcervical and subcapital fracture of the left femur associated with 4 mm impaction.
Procedure findings :
Discharge Plan
-
Patient Disposition:
Date/Time
Date/Time: 07/29/24 12:11
Discharge Date and Time
Discharge Date/Time: 07/29/24 12:48
Print Language: BRAZILIAN
--- NOTE | 2024-07-29 15:19 | CM ---
Addendum entered by Lakeisha Orourke 07/29/24 15:24:
patient coded and .
Original Note:
met with patient who is going to or for repair of fractured femur.Plan snf when dc.
== END 2024-07-29 12:48 | disposition expired | DRG 522 ==
LOC: 2 SOUTH 02:02
PROVIDERS: Orthopaedic Surgery; Physician Assistant; ADMITTING PHYSICIAN Internal Medicine; ATTENDING PHYSICIAN Student in an Organized Health Care Education/Training Program; CONSULT PHYSICIAN Specialist; EMERGENCY PHYSICIAN Student in an Organized Health Care Education/Training Program; FAMILY PHYSICIAN Family Medicine
PROC: 0SRS0J9 Replacement of Left Hip Joint, Femoral Surface with Synthetic Substitute, Cemented, Open Approach (ICD-10-PCS; 2024-07-29)
DX: M80.052A Age-related osteoporosis with current pathological fracture, left femur, initial encounter for fracture (principal); N17.9 Acute kidney failure, unspecified; I97.711 Intraoperative cardiac arrest during other surgery; Z66 Do not resuscitate; W08.XXXA Fall from other furniture, initial encounter; Y83.1 Surgical operation with implant of artificial internal device as the cause of abnormal reaction of the patient, or of later complication, without mention of misadventure at the time of the procedure; I25.10 Atherosclerotic heart disease of native coronary artery without angina pectoris; E11.9 Type 2 diabetes mellitus without complications; E78.00 Pure hypercholesterolemia, unspecified; I25.5 Ischemic cardiomyopathy; I10 Essential (primary) hypertension; J44.89 Other specified chronic obstructive pulmonary disease; K21.9 Gastro-esophageal reflux disease without esophagitis; E03.9 Hypothyroidism, unspecified; F03.90 Unspecified dementia, unspecified severity, without behavioral disturbance, psychotic disturbance, mood disturbance, and anxiety; R00.1 Bradycardia, unspecified; Z95.5 Presence of coronary angioplasty implant and graft; I25.2 Old myocardial infarction; Z88.2 Allergy status to sulfonamides; Z87.891 Personal history of nicotine dependence; Z79.899 Other long term (current) drug therapy; Z79.890 Hormone replacement therapy; Z79.84 Long term (current) use of oral hypoglycemic drugs; Z79.82 Long term (current) use of aspirin
CPT/HCPCS: 72192; 73502; 80048; 80053; 82570; 82962; 83735; 84300; 85025; 85027; 86850; 86900; 86901; 93005; 94640; 94660; 96374; 96375; 99285; C1713; C1776